=== PATIENT | male | born 1935 | race Caucasian/White ===

== ENCOUNTER 2016-10-18 08:34 | Inpatient (IN) | payer MEDICARE, MEDICAID ==
[~2016-10-18] VITALS: Ht 167.6 cm; Wt 82.5 kg
[2016-10-18] MEDS ORDERED: SOD CHLORIDE 0.9% 1,000 ML IV ONE ×2 (09:00→14:30)
[2016-10-18 09:03] LABS: ADD SCAN DIFF NO
[2016-10-18 09:06] LABS: HEMATOCRIT 42.4 % (42.0-52.0); MEAN CORPUSCULAR HEMOGLOBIN 29.9 pg (29.0-33.0); MEAN CORPUSCULAR HGB CONC 30.7 g/dl (32.0-37.0); MEAN CORPUSCULAR VOLUME 97.5 fl (82.0-101.0); MEAN PLATELET VOLUME 9.7 fl (7.4-10.4); PLATELET COUNT 127 10^3/UL (140-415); RED BLOOD COUNT 4.35 10^6/ul (4.70-6.10); RED CELL DISTRIBUTION WIDTH 13.3 % (11.5-14.5); WHITE BLOOD COUNT 5.8 10^3/ul (4.8-10.8)
[2016-10-18 09:25] LABS: INR 1.77; PROTIME 20.8 Sec (12.2-14.2); PT RATIO 1.6
--- NOTE | 2016-10-18 09:33 | RADRPT ---
PROCEDURE: XR Chest. CLINICAL INDICATION: Possible Sepsis TECHNIQUE: Single frontal view of the chest was obtained COMPARISON: None FINDINGS: Defibrillator pad and wires project over the lower thorax upper abdomen. The endotracheal tube terminates approximately 3 cm above the moo. There is a faintly visualized nasogastric tube with tip projecting over the proximal stomach, partially obscured by overlying defi brillator pad. The side port of the nasogastric tube is not well seen. The cardiac silhouette is borderline enlarged. There are low lung volumes. There is mild pulmonary vascular congestion. Mild diffuse interstitial prominence may represent a co mponent of interstitial edema. There are opacities in the right mid lung may represent atelectasis, scarring and / or trace fluid i n the fissure. No definite pneumothorax or pleural effusion is identified. There are degenerative changes of the visualized spine. IMPRESSION: 1. Borderline cardiomegaly with mild pulmonary vascular congestion and possible mild interstitial e zaheer. 2. Linear opacities in the right mid lung may represent atelectasis, scarring, and / or trace fluid in the fissure. 3. Endotracheal tube in adequate position. 4. Nasogastric tube terminating in the proximal stomach with distal portion partially obscured by o verlying external pad. RPTAT: PP Physician Nick Date Time Electronically viewed and signed by Physician Nick on 10/18/2016 09:33 /
[2016-10-18 09:35] LABS: PARTIAL THROMBOPLASTIN TIME 85.3 Sec (25.0-35.0)
[2016-10-18 09:39] LABS: ALBUMIN 3.4 g/dl (3.3-4.9); ALBUMIN/GLOBULIN RATIO 0.87; BILIRUBIN,INDIRECT 0.3 mg/dl (0-1.1); BILIRUBIN,TOTAL 0.3 mg/dl (0.2-1.3); CALCIUM 8.7 mg/dl (8.4-10.2); CREATININE 2.22 mg/dl (0.61-1.24); TOTAL PROTEIN 7.3 g/dl (6.1-8.1)
--- NOTE | 2016-10-18 09:42 | ERA ---
ER Documentation Chief Complaint Date/Time DATE: 10/18/16 TIME: 09:34 Chief Complaint BIB RA ROSC. S/P CARDIAC ARREST HPI 61-year-old male was brought in by paramedics status post cardiac arrest. Supposedly he was on the toilet when he arrested. There were no signs of trauma. Initial rhythm was PEA. Paramedics intubated the patient perform CPR and administered epinephrine twice before the patient had return of spontaneous circulation. He has not been responsive since. Patient had been in this hospital according to paperwork is on Plavix as well as Coreg. There is have a history of CVA and this is likely reason for the Plavix. ROS Unobtainable Medications Home Meds Reported Medications Furosemide* (Furosemide*) 20 Mg Tablet, 20 MG PO DAILY, #60 TAB 10/18/16 Ferrous Sulfate* (Ferrous Sulfate*) 325 Mg Tabec, 325 MG PO TID, TAB 10/18/16 Donepezil* (Donepezil*) 10 Mg Tablet, 10 MG PO DAILY, #30 TAB 10/18/16 Carvedilol* (Carvedilol*) 12.5 Mg Tablet, 12.5 MG PO BID, #60 TAB 10/18/16 Atorvastatin* (Atorvastatin*) 80 Mg Tablet, 80 MG PO QHS, #30 TAB 10/18/16 Aspirin (Low Dose Aspirin) 81 Mg Tablet.dr, 81 MG PO DAILY, #30 TAB 10/18/16 Allergies Allergies: Coded Allergies: No Known Allergy (Unverified , 10/18/16) Physical Exam Vitals Vital Signs Date Time Temp Pulse Resp B/P Pulse Ox O2 Delivery O2 Flow Rate FiO2 10/18/16 12:54 76 25 100 100 10/18/16 12:40 62 140/71 100 Mechanical Ventilator 10/18/16 11:40 58 14 134/74 100 Mechanical Ventilator 10/18/16 10:38 51 14 113/84 100 Room Air 10/18/16 08:59 19 100 100 10/18/16 08:34 95.3 66 14 136/88 100 Physical Exam Const: [] Unresponsive, receiving bag mask ventilation Head: Atraumatic Eyes: Normal Conjunctiva, pupils fixed ENT: Normal External Ears, Nose and Mouth. Neck: Full range of motion..~ No meningismus. Resp: Equal bilateral breath sounds with bag mask ventilation Cardio: Regular tachycardia, no murmurs Abd: Soft, non distended. Normal bowel sounds Skin: No petechiae or rashes, cool to touch Back: No midline or flank tenderness Ext: No cyanosis, or edema Neur: Completely unresponsive, no response to pain Result Diagram: 10/18/16 0845 10/18/16 0845 Results 24 hrs Laboratory Tests Test 10/18/16 08:45 10/18/16 09:30 10/18/16 11:25 White Blood Count 5.810^3/ul Red Blood Count 4.3510^6/ul Hemoglobin 13.0g/dl Hematocrit 42.4% Mean Corpuscular Volume 97.5fl Mean Corpuscular Hemoglobin 29.9pg Mean Corpuscular Hemoglobin Concent 30.7g/dl Red Cell Distribution Width 13.3% Platelet Count 68830^3/UL Mean Platelet Volume 9.7fl Neutrophils % 36.0% Band Neutrophils % 4.0% Lymphocytes % 55.0% Monocytes % 3.0% Eosinophils % 2.0% Neutrophils # 2.110^3/ul Lymphocytes # 3.210^3/ul Monocytes # 0.210^3/ul Eosinophils # 0.110^3/ul Prothrombin Time 20.8Sec Prothrombin Time Ratio 1.6 INR International Normalized Ratio 1.77 Activated Partial Thromboplast Time 85.3Sec Sodium Level 143mmol/L Potassium Level 5.3mmol/L Chloride Level 104mmol/L Carbon Dioxide Level 20mmol/L Anion Gap 24 Blood Urea Nitrogen 31mg/dl Creatinine 2.22mg/dl Glucose Level 240mg/dl Lactic Acid Level 8.5mmol/L 6.6mmol/L Calcium Level 8.7mg/dl Total Bilirubin 0.3mg/dl Direct Bilirubin 0.00mg/dl Indirect Bilirubin 0.3mg/dl Aspartate Amino Transf (AST/SGOT) 27IU/L Alanine Aminotransferase (ALT/SGPT) 23IU/L Alkaline Phosphatase 167IU/L Troponin I 0.034ng/ml Total Protein 7.3g/dl Albumin 3.4g/dl Globulin 3.90g/dl Albumin/Globulin Ratio 0.87 Urine Color YELLOW Urine Clarity SLIGHTLY CLOUDY Urine pH 5.0 Urine Specific [place] 1.014 Urine Ketones NEGATIVEmg/dL Urine Nitrite NEGATIVEmg/dL Urine Bilirubin NEGATIVEmg/dL Urine Urobilinogen NEGATIVEmg/dL Urine Leukocyte Esterase NEGATIVELeu/ul Urine Microscopic RBC 25/HPF Urine Microscopic WBC 2/HPF Urine Hemoglobin 3+mg/dL Urine Glucose NEGATIVEmg/dL Urine Total Protein 1+mg/dl Current Medications Medications (Trade) Dose Ordered Sig/Bernie Route PRN Reason Start Time Stop Time Status Last Admin Dose Admin Sodium Chloride (NS) 1,000 ml @ 1,000 mls/hr Q1H ONCE IV 10/18/16 09:00 10/18/16 09:59 DC 10/18/16 09:00 IV Flush (NS 3 ml) 3 ml PER PROTOCOL IV 10/18/16 12:00 Ondansetron HCl (Zofran Inj) 4 mg Q6H PRN IV NAUSEA AND/OR VOMITING 10/18/16 12:00 Acetaminophen (Tylenol Tab) 650 mg Q6H PRN PO PAIN LEVEL 1-3 OR FEVER 10/18/16 12:00 Acetaminophen/ Hydrocodone Bitart ([place] (5/325)) 1 tab Q6H PRN PO MODERATE PAIN LEVEL 4-6 10/18/16 12:00 Morphine Sulfate (morphine) 2 mg Q4H PRN IV SEVERE PAIN LEVEL 7-10 10/18/16 12:00 Docusate Sodium (Colace) 100 mg Q12H PRN PO CONSTIPATION 10/18/16 12:00 Magnesium Hydroxide (Milk Of Mag) 30 ml DAILY PRN PO CONSTIPATION 10/18/16 12:00 Sodium Biphosphate/ Sodium Phosphate (Fleet Enema) 133 ml DAILY PRN [place] CONSTIPATION 10/18/16 12:00 Famotidine (Pepcid Iv) 20 mg Q24H IV 10/18/16 14:00 Lorazepam (Ativan) 0.5 mg Q6H PRN IV ANXIETY 10/18/16 12:00 10/18/16 13:36 Albuterol/ Ipratropium (Duoneb) 3 ml Q4H RESP THERAPY PRN HHN SHORTNESS OF BREATH 10/18/16 12:00 Hydralazine HCl (Apresoline) 10 mg Q6H PRN IV ELEVATED BLOOD PRESSURE 10/18/16 12:00 Nitroglycerin 1 tab 1 tab Q5M PRN SL ANGINA 10/18/16 12:00 Aztreonam 2 gm/ Sodium Chloride 100 ml @ 100 mls/hr Q8 IVPB 10/18/16 14:00 UNV Midazolam HCl 50 ml @ 3 mls/hr ONCE STAT IV 10/18/16 12:01 10/19/16 04:40 Fentanyl (Sublimaze) 100 ml @ 2.5 mls/hr TITRATE ONCE IV 10/18/16 12:30 10/20/16 04:29 Procedures/MDM Post cardiac arrest patient had any signs of acute infection. Elevated white count. Acute renal failure with hyperkalemia. Lactic acidosis post arrest and brief CPR. Patient has had stable blood pressure throughout. I spoke with hide grader, Dr Steven, after patient arrival. He did not think this patient was appropriate for taking straight to the [facility]. He is showing some signs of improving mental status. When he was suctioned by respiratory he wakes up raises his arms and opens his eyes briefly. Therapeutic hypothermia not initiated because of this as well as coagulopathy with patient on Plavix with a very high PTT. Patient given a rectal aspirin. Is also given Kayexalate for the NG tube. Spoke with Dr. El Mayberry who admitting the patient to the ICU. EKG interpretation: Normal sinus rhythm rate of 84, 2 PVCs, QT of 554, no ST or T-wave changes concerning for acute ischemia. Chest x-ray interpretation: Right lower lung atelectasis with no other acute process, I see no definite infiltrate, no widened mediastinum, pneumothorax, no fractures. CT head interpretation: I see no acute process. I see no hemorrhage, no mass- effect or midline shift no skull fractures CT abdomen pelvis interpretation: No acute process. No abnormal fat stranding, no free air, no obstruction, no acute fractures Critical care time 46 minutes: This includes management of postarrest patient, careful fluid administration, post return of spontaneous circulation care, consideration of invasive procedures, treatment of unstable vital signs, multiple frequent visits patient's bedside to reassess status and signs of decompensation loss of pulses. Also includes chart review and ventilator management. This does not include any billable procedures Departure Diagnosis: Primary Impression: Cardiac arrest Additional Impressions: Renal failure Hyperkalemia Thrombocytopenia Lactic acidosis Condition: Critical SHANNON MCDONOUGH DO Oct 18, 2016 09:41
[2016-10-18 09:49] LABS: POTASSIUM 5.3 mmol/L (3.5-5.1)
[2016-10-18 09:51] LABS: TROPONIN-I 0.034 ng/ml (0.00-0.12)
[2016-10-18 10:10] LABS: ADD UMIC YES; UR ASCORBIC ACID NEGATIVE (NEGATIVE); UR BILIRUBIN (Dip) NEGATIVE (NEGATIVE); UR BLOOD (Dip) 3+ mg/dL (NEGATIVE); UR CLARITY SLIGHTLY CLOUDY (CLEAR); UR COLOR YELLOW (YELLOW); UR GLUCOSE (Dip) NEGATIVE (NEGATIVE); UR KETONES (Dip) NEGATIVE (NEGATIVE); UR LEUKOCYTE ESTERASE (Dip) NEGATIVE Leu/ul (NEGATIVE); UR NITRITE (Dip) NEGATIVE (NEGATIVE); UR RBC 25 /HPF (0-5); UR SPECIFIC GRAVITY (Dip) 1.014 (1.003-1.030); UR TOTAL PROTEIN (Dip) 1+ mg/dl (NEGATIVE); UR UROBILINOGEN (Dip) NEGATIVE (NEGATIVE)
--- NOTE | 2016-10-18 10:25 | RADRPT ---
PROCEDURE: CT abdomen and pelvis without contrast. CLINICAL INDICATION: Cardiac arrest. Abdominal aortic aneurysm. TECHNIQUE: CT scan of the abdomen and pelvis without contrast was performed and is reconstructed a t 2.5 mm contiguous axial intervals from the dome of the diaphragm to the inferior pubic rami.. The patient was scanned without intravenous contrast. Sagittal and coronal reformatted images were obt ained from the axial source images. The calculated radiation dose measures 1134 mGy centimeters. The CTDI measures 17 mGy. COMPARISON: None. FINDINGS: There are small bilateral pleural effusions and a small pericardial effusion. Noted is cardiomegaly with coronary artery calcifications. No alveolar infiltrate or mass is seen. There is partial ate lectasis of the right middle lobe and the inferior segment of the lingula. Increased interstitial m arkings are seen in the dependent portion of both lower lobes. The liver, spleen and pancreas are unremarkable. There are gallstones. No adrenal mass is present. 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 There are multiple less than 3 mm nonobstructing l eft renal calculi. Ureters are of normal course and caliber with no stone. Tovar catheter is seen in a decompressed urinary bladder. There is questionable thickening of the wall of the urinary blad judy which may represent evidence of cystitis. Prostate is enlarged. The capsule appears to be inta ct. There is no adenopathy. Noted is fusiform aneurysm of the abdominal aorta measuring 6 cm in maximum transverse diameter. Th ere are mural calcifications. The aneurysm arises approximately 2 cm below the renal arteries and i s not involve the common iliac arteries. There is calcified plaque in the iliac vessels. There is no evidence of retroperitoneal hemorrhage to suggest leak. No bowel mass or obstruction is present. No phlegmon, ascites or pneumoperitoneum is seen. The aristides endix is normal. The osseous structures are intact. IMPRESSION: 6 cm infrarenal super iliac abdominal aortic aneurysm. No evidence of rupture. 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 Enlarged prostate - correlation with PSA is suggested. Question bladder wall thickening. This may indicate cystitis. Small pleural effusions and small pericardial effusion. Cardiomegaly with coronary artery calcifica tions. Bibasilar atelectasis. Cholelithiasis. .Gaurav Whitt MD, MD Date Time Electronically viewed and signed by .Gaurav Whitt MD, MD on 10/18/2016 10:24 .A/
[2016-10-18 10:59] LABS: EOSINOPHILS # 0.1 10^3/ul (0.0-0.5); LYMPHOCYTES # 3.2 10^3/ul (0.8-2.9); MONOCYTE # 0.2 10^3/ul (0.3-0.9); NEUTROPHIL # 2.1 10^3/ul (1.6-7.5)
--- NOTE | 2016-10-18 11:04 | CONS ---
Date/Time of Note Date/Time of Note DATE: 10/18/16 TIME: 10:52 Assessment/Plan Assessment/Plan Chief Complaint/Hosp Course PEA/Asystole cardiac arrest: Etiology unclear. Commonly when PEA occurs on the toilet (vagal with release) concern is for severe , pulm HTN, or PE. No significant ST changes by EKG and initial trop negative (obviously needs to be trended). CXR shows a somewhat globular heart so effusion needs to be ruled out but currently hemodynamically stable. Acute respiratory failure: intubated due to arrest Acute renal failure: from above Acute ?diastolic/systolic heart failure: mild pulm edema by CXR AAA: [address] but no e/o rupture though noncontrast study -stat echo -trend trops -consider eval for PE especially if echo is suggestive of RV dysfunction -eventually needs vascular surgery eval for AAA Problems: Consultation Date/Type/Reason Admit Date/Time Date of Consultation: Oct 18, 2016 Type of Consultation: Cardiology Reason for Consultation Cardiac arrest Referring Provider: SHANNON MCDONOUGH DO Hx of Present Illness 81 yo M with no known medical history (no family or prior medical records) who presented secondary to cardiac arrest at home. The pt was apparently on the toilet and was found down (unclear length). When paramedics arrived he was in asystole and he was successfully resuscitated. No VF or shocks. He has remained intubated, unresponsive and hemodynamically stable. Subjective hx not possible: pt non-verbal Past Medical History unknown Social History Smoking Status: Never smoker Exam/Review of Systems Vital Signs Vitals Vital Signs Date Time Temp Pulse Resp B/P Pulse Ox O2 Delivery O2 Flow Rate FiO2 10/18/16 10:38 51 14 113/84 100 Room Air 10/18/16 08:59 100 10/18/16 08:34 95.3 Exam Constitutional: No alert Head: atraumatic, normocephalic Neck: No jvd (difficult to examine ) Respiratory: diminished breath sounds, No clear to auscultation Cardiovascular: other (slightly cool extremities ), systolic murmur (2/6 FIDE), No edema, No regular rate and rhythm (bradycardic 50s) Gastrointestinal: soft, No distended Neurological: No nl mental status, No nl speech Skin: rash or lesions Results EKG: sinus, nonspecific IVCB, poor RW progression, no significant ST elevation or depression Result Diagram: 10/18/16 0845 10/18/16 0845 Results 24 hrs Laboratory Tests Test 10/18/16 08:45 10/18/16 09:30 White Blood Count 5.8 Red Blood Count 4.35 L Hemoglobin 13.0 L Hematocrit 42.4 Mean Corpuscular Volume 97.5 Mean Corpuscular Hemoglobin 29.9 Mean Corpuscular Hemoglobin Concent 30.7 L Red Cell Distribution Width 13.3 Platelet Count 127 L Mean Platelet Volume 9.7 Neutrophils % Lymphocytes % Monocytes % Neutrophils # Lymphocytes # Monocytes # Prothrombin Time 20.8 H Prothrombin Time Ratio 1.6 INR International Normalized Ratio 1.77 Activated Partial Thromboplast Time 85.3 *H Sodium Level 143 Potassium Level 5.3 H Chloride Level 104 Carbon Dioxide Level 20 L Anion Gap 24 H Blood Urea Nitrogen 31 H Creatinine 2.22 H Glucose Level 240 H Lactic Acid Level 8.5 *H Calcium Level 8.7 Total Bilirubin 0.3 Direct Bilirubin 0.00 Indirect Bilirubin 0.3 Aspartate Amino Transf (AST/SGOT) 27 Alanine Aminotransferase (ALT/SGPT) 23 Alkaline Phosphatase 167 H Troponin I 0.034 Total Protein 7.3 Albumin 3.4 Globulin 3.90 H Albumin/Globulin Ratio 0.87 Urine Color YELLOW Urine Clarity SLIGHTLY CLOUDY A Urine pH 5.0 Urine Specific [place] 1.014 Urine Ketones NEGATIVE Urine Nitrite NEGATIVE Urine Bilirubin NEGATIVE Urine Urobilinogen NEGATIVE Urine Leukocyte Esterase NEGATIVE Urine Microscopic RBC 25 H Urine Microscopic WBC 2 Urine Hemoglobin 3+ H Urine Glucose NEGATIVE Urine Total Protein 1+ H MARIPOSA SANDERSON Oct 18, 2016 11:04
--- NOTE | 2016-10-18 11:55 | RADRPT ---
Echocardiogram Report Patient Name: GIGI US Gender: Male Date: 1935 Study Date: 18-Oct-2016 Rolfer: Israel Caldera RDCS Location: 3 Ref. Physician: MARIPOSA SANDERSON Quality: Good Procedures: Transthoracic echocardiogram with complete 2D, M-Mode, and doppler examination. Indications: Cardiac Arrest. 2D/M Mode Doppler Measurement Value Normal Ranges Measurement Value Normal Ranges LVIDd 2D 5.6 3.5 - 5.6 cm AV Peak Pipo 1.1 m/sec LVIDs 2D 3.8 2.1 - 4.1 cm AV Peak PG 4.9 mmHg LVPWd 2D 1.1 0.6 - 1.1 cm AI Peak PG 47.2 mmHg IVSd 2D 1.2 0.6 - 1.1 cm AI Peak Pipo 3.4 m/sec AoR Diam 2D 2.9 2.0 - 3.7 cm AI PHT 683.0 msec EDV 2D 156.8 cm3 LVOT Peak Pipo 0.6 m/sec ESV 2D 53.1 cm3 LVOT Peak PG 1.4 mmHg LA Dimen 2D 4.9 2.3 - 4.0 cm TR Peak Pipo 3.1 m/sec TR Peak PG 38.2 mmHg RVSP 53.0 mmHg Findings Left Ventricle: Normal left ventricular cavity size. Normal left ventricular wall thickness. Severe global left ventricular systolic dysfunction. Ejection fraction is visually estimated at 25 %. Resting Segmental Wall Motion Analysis: Akinesis of the apex and anterolateral arteaga. The anterior wall is not well seen but appears hypokinetic. The mid to distal inferolateral and inferior arteaga are hypokinetic as well. Right Ventricle: Mild right ventricular hypokinesis. Left Atrium: There is moderate enlargement of left atrium. Right Atrium: The right atrium is normal in size. Mitral Valve: Mitral valve leaflets appear mildly thickened. Mild mitral annular calcification. Mild to moderate mitral valve regurgitation. Aortic Valve: Aortic cusps appear mildly calcified. Mild aortic valve regurgitation. Tricuspid Valve: Normal appearance of the tricuspid valve. Estimated peak PA systolic pressure 53 mmHg. There is mild tricuspid regurgitation. Pulmonic Valve: Normal pulmonic valve appearance. Pericardium: Small pericardial effusion. Aorta: Normal aortic root. IVC: Dilated IVC without respiratory collapse, however, patient on ventilator. Conclusions 1.Normal left ventricular cavity size. Normal left ventricular wall thickness. Severe global left ventricular systolic dysfunction. Ejection fraction is visually estimated at 25 %. 2.Akinesis of the apex and anterolateral arteaga. The anterior wall is not well seen but appears hypokinetic. The mid to distal inferolateral and inferior arteaga are hypokinetic as well. 3.Mild to moderate mitral valve regurgitation. 4.Mild aortic valve regurgitation. 5.Small pericardial effusion. 6.Estimated peak PA systolic pressure 53 mmHg based on RA pressure of 15 mmHg. Patient is on a ventilator. Electronically Signed By: Mariposa Sanderson 18-Oct-2016 11:54:32 -0700 Patient Name: GIGI US Study Date: 18-Oct-2016 [id number]
[2016-10-18] MEDS ORDERED: DOCUSATE SODIUM 100 MG CAP PO PRN (12:00)
[2016-10-18] MEDS ORDERED: morphine 2 MG INJ IV PRN (12:00)
[2016-10-18] MEDS ORDERED: ONDANSETRON 4 MG INJ IV PRN (12:00)
[2016-10-18] MEDS ORDERED: NA PHOSPHATE/BIPHOS 133 ML ENEMA PR PRN (12:00)
[2016-10-18] MEDS ORDERED: HYDROCODONE/APAP (5/325) TAB PO PRN (12:00)
[2016-10-18] MEDS ORDERED: ACETAMINOPHEN 325 MG TAB PO PRN (12:00)
[2016-10-18] MEDS ORDERED: hydrALAzine 20 MG INJ IV PRN (12:00)
[2016-10-18] MEDS ORDERED: NITROGLYCERIN (SL) 0.4 MG TAB SL PRN (12:00)
[2016-10-18] MEDS ORDERED: ALBUTEROL/IPRATROPIUM (NEB) 3 ML AMP HHN PRN (12:00)
[2016-10-18] MEDS ORDERED: NACL 0.9% 3 ML SYG IV SCH (12:00)
[2016-10-18] MEDS ORDERED: LORAZEPAM 2 MG INJ IV PRN (12:00)
[2016-10-18] MEDS ORDERED: MAGNESIUM HYDROXIDE 30ML CUP PO PRN (12:00)
[2016-10-18] MEDS ORDERED: MIDAZOLAM (DRIP) 50 mg/50 mL 50 ML IV STA (12:01)
[2016-10-18] MEDS ORDERED: FENTAnyl (DRIP) 1000 mcg/100mL 100 ML IV ONE (12:30)
[2016-10-18] MEDS ORDERED: ATOR80TA75 PO (12:33)
[2016-10-18] MEDS ORDERED: ASPI-664 PO (12:33)
[2016-10-18] MEDS ORDERED: CARV12.579 PO (12:33)
[2016-10-18] MEDS ORDERED: FURO20TA3 PO (12:34)
[2016-10-18] MEDS ORDERED: FER325 PO (12:34)
[2016-10-18] MEDS ORDERED: DONE10TA7 PO (12:34)
--- NOTE | 2016-10-18 13:32 | RADRPT ---
PROCEDURE: CT Brain without contrast. CLINICAL INDICATION: Cardiac arrest. evaluate for stroke. TECHNIQUE: A CT of the brain was performed on a multidetector CT scanner utilizing axial sections from the skull base through the vertex without contrast. Images were reviewed on a high-resolution [employer] workstation. Exam CTDI = 44.52 mGy and the DLP = 720.23 mGy-cm. One or more of the following dose reduction techniques were used: Automated exposure control Adjustment of the mA and/or kV according to patient size. Use of iterative reconstruction technique. COMPARISON: None FINDINGS: Mild to moderate diffuse cerebral and cerebellar atrophy is present. There is proportionate dilatat ion of the ventricular system and sulci in a symmetric fashion. There is prominence of the extraaxia l spaces secondary to atrophy. There is no evidence of intracranial hemorrhage, mass effect or midli ne shift. There is mild sulcal effacement and blurring of the rico-white matter differentiation invo lving the left parietal, and posterior temporal lobes suggesting acute infarct. There is encephaloma lacia with dystrophic calcification in the left cerebellar hemisphere. There is a small area of chr onic infarct involving the right frontal operculum, sub insular region/external capsule with ex vacu o dilatation of the right lateral ventricle. No abnormal intra-axial or extra-axial fluid collection s are seen. The density of the brain is normal and the rico/white matter differentiation is well pr eserved. Mild patchy diffuse deep white matter microangiopathic ischemic change is seen. The osseous structures are unremarkable. Paranasal sinuses are clear. Vascular calcifications are ident ified. Several attempts were made to communicate the results with ED team at 01:31 p.m. on 10/18/2016. IMPRESSION: 1. Subtle blurring of the great white matter differentiation and mild sulcal effacement involving t he left parietal and posterior temporal lobes suggesting acute infarct. No evidence of hemorrhagic conversion or significant associated vasogenic edema/mass effect. Brain MRI or short-term follow-up CT head is recommended for further evaluation. 2. Focal encephalomalacia with dystrophic calcification in the left cerebellar hemisphere. 3. Chronic infarct in the right frontal operculum, sub insular region and external capsule. 4. Mild to moderate generalized volume loss. 5. Mild chronic microvascular ischemic changes. 6. Intracranial atherosclerosis. RPTAT: BB .Toni Grove MD, MD Date Time Electronically viewed and signed by .Toni Grove MD, MD on 10/18/2016 13:32 .O/
[2016-10-18] MEDS ORDERED: ASPIRIN 300 MG SUPP PR ONE (14:00)
[2016-10-18] MEDS ORDERED: NA POLYST SULFON 15 GM/60 ML BTL NGT ONE (14:00)
[2016-10-18] MEDS: AZTREONAM 1 GM/NS (PMX) 50 ML IVPB SCH ×2 (14:47→22:11)
[2016-10-18] MEDS: FAMOTIDINE 20 MG INJ IV SCH ×2 (15:49→17:41)
--- NOTE | 2016-10-18 16:11 | HP ---
Date/Time of Note Date/Time of Note DATE: 10/18/16 TIME: 16:03 Assessment/Plan VTE Prophylaxis VTE Prophylaxis Intervention: SCD's HPI/ROS Admit Date/Time Admit Date/Time ROS PMH/Family/Social Past Medical History Medical History: other Social History Smoking Status: Never smoker Exam/Review of Systems Vital Signs Vitals Vital Signs Date Time Temp Pulse Resp B/P Pulse Ox O2 Delivery O2 Flow Rate FiO2 10/18/16 15:04 96.2 10/18/16 14:59 54 22 100 100 10/18/16 14:14 153/62 Mechanical Ventilator Labs Result Diagram: 10/18/16 0845 10/18/16 0845 Medications Medications Current Medications Ondansetron HCl (Zofran Inj) 4 mg Q6H PRN IV NAUSEA AND/OR VOMITING; Start at 12:00 Acetaminophen (Tylenol Tab) 650 mg Q6H PRN PO PAIN LEVEL 1-3 OR FEVER; Start at 12:00 Acetaminophen/ Hydrocodone Bitart ([place] (5/325)) 1 tab Q6H PRN PO MODERATE PAIN LEVEL 4-6; Start 10/18/16 at 12:00 Morphine Sulfate (morphine) 2 mg Q4H PRN IV SEVERE PAIN LEVEL 7-10; Start 10/18 at 12:00 Docusate Sodium (Colace) 100 mg Q12H PRN PO CONSTIPATION; Start 10/18/16 at 12: 00 Magnesium Hydroxide (Milk Of Mag) 30 ml DAILY PRN PO CONSTIPATION; Start at 12:00 Sodium Biphosphate/ Sodium Phosphate (Fleet Enema) 133 ml DAILY PRN [place] CONSTIPATION; Start 10/18/16 at 12:00 Famotidine (Pepcid Iv) 20 mg Q24H IV ; Start 10/18/16 at 14:00 Lorazepam (Ativan) 0.5 mg Q6H PRN IV ANXIETY Last administered on 10/18/16t 13: 36; Admin Dose 0.5 MG; Start 10/18/16 at 12:00 Hydralazine HCl (Apresoline) 10 mg Q6H PRN IV ELEVATED BLOOD PRESSURE; Start at 12:00 Nitroglycerin 1 tab 1 tab Q5M PRN SL ANGINA; Start 10/18/16 at 12:00 Aztreonam 50 ml @ 100 mls/hr Q8 IVPB Last administered on 10/18/16 14:47; Admin Dose 100 MLS/HR; Start 10/18/16 at 14:30 Fentanyl (Sublimaze) 100 ml @ 2.5 mls/hr TITRATE ONCE IV ; Start 10/18/16 at 12:30; Stop 10/20/16 at 04:29 JAZ BRISCOE Oct 18, 2016 16:11 36; Admin Dose 0.5 MG; Start 10/18/16 at 12:00 Hydralazine HCl (Apresoline) 10 mg Q6H PRN IV ELEVATED BLOOD PRESSURE; Start at 12:00 Nitroglycerin 1 tab 1 tab Q5M PRN SL ANGINA; Start 10/18/16 at 12:00 Aztreonam 50 ml @ 100 mls/hr Q8 IVPB Last administered on 10/18/16 14:47; Admin Dose 100 MLS/HR; Start 10/18/16 at 14:30 Fentanyl (Sublimaze) 100 ml @ 2.5 mls/hr TITRATE ONCE IV ; Start 10/18/16 at 12:30; Stop 10/20/16 at 04:29 JAZ BRISCOE Oct 18, 2016 16:11
[2016-10-18] MEDS ORDERED: NA BICARBONATE 8.4% 50 ML SYG IV ONE (16:30)
--- NOTE | 2016-10-18 18:37 | CONS ---
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 Question bladder wall thickening. ? cystitis via CT 6) AMS ? CVA vs mass 7) Hyperkalemia, mild 8) Lactic acidosis No acute indication for HD at this time ICU level of care Strict Is and Os Gimenez in place Monitor Electrolytes, Volume and Acid Base status, Renal function closely Renal US and Urine studies ordered F/u Urine Cultures, ? Cystitis S/p Broad spectrum IV abx in ED Thank you for the opportunity to paticipate in the care of Mr Perry Dr Lyons is rounding this weekend and will sign out case. Consultation Date/Type/Reason Admit Date/Time Date of Consultation: Oct 18, 2016 Type of Consultation: Renal Reason for Consultation GABRIELA Referring Provider: JAZ BRISCOE Hx of Present Illness Unable to obtain hx from patient, Intubated and sedated. 81-year-old male with unknown past medical history who was brought in by EMS S/ p cardiac arrest. It is unclear how long patient was down at home before CPR initiated. Paramedics had intubated the patient perform CPR and administered epinephrine twice and with ROSC. A Head CT also shows subtle blurring of the great white matter differentiation and mild sulcal effacement involving the left parietal and posterior temporal lobes suggesting acute infarct. Nephrology consulted for GABRIELA, unknown baseline. Pt also has gimenez catheter and has not made any UO depsite 2 Liters of IVFS. No hypotension reported. Bladder scan at bedside no urine. unable to obtain due to condition Subjective hx not possible: pt critical status Past Medical History Medical History: other (unknown) Past Surgical History Past Surgical Hx: other Family History Significant Family History: other (unknown) Social History Smoking Status: Never smoker Other Social History unknown Exam/Review of Systems Vital Signs Vitals Vital Signs Date Time Temp Pulse Resp B/P Pulse Ox O2 Delivery O2 Flow Rate FiO2 10/18/16 18:08 76 18 100 100 10/18/16 17:11 146/80 Mechanical Ventilator 10.0 10/18/16 16:04 95.8 Exam ENMT: intubated, No mucosa pink and moist Neck: No jvd Respiratory: other (Ventilator, Coarse breath sounds), No diminished breath sounds Cardiovascular: irregular rhythm, No edema Gastrointestinal: soft, No distended, No rebound or guarding, No tender Musculoskeletal: nl extremities to inspection Extremities: No pitting pedal edema Neurological: unresponsive Skin: No diaphoresis, No rash or lesions Results Result Diagram: 10/18/16 0845 10/18/16 0845 Results 24 hrs Laboratory Tests Test 10/18/16 08:45 10/18/16 09:30 10/18/16 11:25 10/18/16 13:40 White Blood Count 5.8 Red Blood Count 4.35 L Hemoglobin 13.0 L Hematocrit 42.4 Mean Corpuscular Volume 97.5 Mean Corpuscular Hemoglobin 29.9 Mean Corpuscular Hemoglobin Concent 30.7 L Red Cell Distribution Width 13.3 Platelet Count 127 L Mean Platelet Volume 9.7 Neutrophils % 36.0 L Band Neutrophils % 4.0 Lymphocytes % 55.0 H Monocytes % 3.0 Eosinophils % 2.0 Neutrophils # 2.1 Lymphocytes # 3.2 H Monocytes # 0.2 L Eosinophils # 0.1 Prothrombin Time 20.8 H Prothrombin Time Ratio 1.6 INR International Normalized Ratio 1.77 Activated Partial Thromboplast Time 85.3 *H Sodium Level 143 Potassium Level 5.3 H Chloride Level 104 Carbon Dioxide Level 20 L Anion Gap 24 H Blood Urea Nitrogen 31 H Creatinine 2.22 H Glucose Level 240 H Lactic Acid Level 8.5 *H 6.6 *H 7.5 *H Calcium Level 8.7 Total Bilirubin 0.3 Direct Bilirubin 0.00 Indirect Bilirubin 0.3 Aspartate Amino Transf (AST/SGOT) 27 Alanine Aminotransferase (ALT/SGPT) 23 Alkaline Phosphatase 167 H Troponin I 0.034 1.870 *H Total Protein 7.3 Albumin 3.4 Globulin 3.90 H Albumin/Globulin Ratio 0.87 Urine Color YELLOW Urine Clarity SLIGHTLY CLOUDY A Urine pH 5.0 Urine Specific [place] 1.014 Urine Ketones NEGATIVE Urine Nitrite NEGATIVE Urine Bilirubin NEGATIVE Urine Urobilinogen NEGATIVE Urine Leukocyte Esterase NEGATIVE Urine Microscopic RBC 25 H Urine Microscopic WBC 2 Urine Hemoglobin 3+ H Urine Glucose NEGATIVE Urine Total Protein 1+ H Free Thyroxine 1.78 Test 10/18/16 16:00 Lactic Acid Level 5.9 *H Medications Medications Current Medications Ondansetron HCl (Zofran Inj) 4 mg Q6H PRN IV NAUSEA AND/OR VOMITING; Start at 12:00 Acetaminophen (Tylenol Tab) 650 mg Q6H PRN PO PAIN LEVEL 1-3 OR FEVER; Start at 12:00 Acetaminophen/ Hydrocodone Bitart ([place] (5/325)) 1 tab Q6H PRN PO MODERATE PAIN LEVEL 4-6; Start 10/18/16 at 12:00 Morphine Sulfate (morphine) 2 mg Q4H PRN IV SEVERE PAIN LEVEL 7-10; Start 10/18 at 12:00 Docusate Sodium (Colace) 100 mg Q12H PRN PO CONSTIPATION; Start 10/18/16 at 12: 00 Magnesium Hydroxide (Milk Of Mag) 30 ml DAILY PRN PO CONSTIPATION; Start at 12:00 Sodium Biphosphate/ Sodium Phosphate (Fleet Enema) 133 ml DAILY PRN [place] CONSTIPATION; Start 10/18/16 at 12:00 Famotidine (Pepcid Iv) 20 mg Q24H IV Last administered on 10/18/16 17:41; Admin Dose 20 MG; Start 10/18/16 at 14:00 Lorazepam (Ativan) 0.5 mg Q6H PRN IV ANXIETY Last administered on 10/18/16 13: 36; Admin Dose 0.5 MG; Start 10/18/16 at 12:00 Hydralazine HCl (Apresoline) 10 mg Q6H PRN IV ELEVATED BLOOD PRESSURE; Start at 12:00 Nitroglycerin 1 tab 1 tab Q5M PRN SL ANGINA; Start 10/18/16 at 12:00 Aztreonam 50 ml @ 100 mls/hr Q8 IVPB Last administered on 10/18/16 14:47; Admin Dose 100 MLS/HR; Start 10/18/16 at 14:30 Fentanyl (Sublimaze) 100 ml @ 2.5 mls/hr TITRATE ONCE IV Last administered on 10/18/16 16:27; Admin Dose 2.5 MLS/HR; Start 10/18/16 at 12:30; Stop at 04:29 Atorvastatin Calcium (Lipitor) 80 mg QHS PO ; Start 10/18/16 at 21:00 Procedures Procedures CXR IMPRESSION: 1. Borderline cardiomegaly with mild pulmonary vascular congestion and possible mild interstitial edema. 2. Linear opacities in the right mid lung may represent atelectasis, scarring, and / or trace fluid in the fissure. 3. Endotracheal tube in adequate position. 4. Nasogastric tube terminating in the proximal stomach with distal portion partially obscured by overlying external pad. CT IMPRESSION: 6 cm infrarenal super iliac abdominal aortic aneurysm. No evidence of rupture. 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 Enlarged prostate - correlation with PSA is suggested. Question bladder wall thickening. This may indicate cystitis. Small pleural effusions and small pericardial effusion. Cardiomegaly with coronary artery calcifications. Bibasilar atelectasis. Cholelithiasis. .Gaurav Whitt MD, MD Date Time Electronically viewed and signed by .Gaurav Whitt MD, MD on 10/18/2016 10: 24 MARTINA MCCULLOUGH MD Oct 18, 2016 18:37
--- NOTE | 2016-10-18 19:00 | CONS ---
Date/Time of Note Date/Time of Note DATE: 10/18/16 TIME: 18:54 Assessment/Plan Assessment/Plan Chief Complaint/Hosp Course Assessment 1. Cardiopulmonary arrest 2. Possible anoxic brain injury 3. Possible aspiration pneumonia 4. Questionable acute infarct given CT findings. 5. Incomplete data 6. Severe lactic acidosis likely secondary to hypoperfusion. Plan 1. Continue mechanical ventilation 2. Continue aggressive volume resuscitation 3. Consider broad-spectrum antibiotics 4. Attempt to contact next of kin. 5. Agree with palliative care evaluation as prolonged cardiopulmonary arrest can result in severe anoxic brain injury with very poor prognosis. Currently patient remains full code. Problems: Consultation Date/Type/Reason Admit Date/Time Date of Consultation: Oct 18, 2016 Reason for Consultation Respiratory failure Hx of Present Illness This history is from the chart there are no family members present patient is intubated on mechanical ventilation. 81-year-old gentleman with unknown past medical history per documentation patient was on the toilet collapsed found unresponsive unclear how long he was down before CPR was initiated and arrival of EMS. Initially found to be in PEA rhythm patient required intubation and mechanical ventilation given epinephrine with return of circulation. ER physician hypothermia was not commenced. Patient found to have initial significant lactic acidosis. Aggressive volume resuscitation initiated initial CTs demonstrated 6 cm AAA but no evidence of rupture. CT of the brain showed subtle blurring of rico-white matter but no bleeding. There was suggestion of possible acute infarct. Currently patient is intubated on mechanical ventilation twitching activity unclear whether this is seizure activity. Unable to perform Past Medical History Unknown Medical History: other (unknown) Past Surgical History Past Surgical Hx: other Social History Smoking Status: Never smoker Exam/Review of Systems Vital Signs Vitals Vital Signs Date Time Temp Pulse Resp B/P Pulse Ox O2 Delivery O2 Flow Rate FiO2 10/18/16 18:08 76 18 100 100 10/18/16 17:11 146/80 Mechanical Ventilator 10.0 10/18/16 16:04 95.8 Exam PHYSICAL EXAMINATION GENERAL: Chronically ill-appearing gentleman intubated on mechanical ventilation with occasional twitching activity which is not focal. VITAL SIGNS: see below. HEENT: Pupils equal, round, and reactive to light. CARDIAC: S1, S2, 1/6 systolic ejection murmur CHEST: Diminished air entry bilaterally. ABDOMEN: Mildly distended. Bowel sounds present no guarding or rebound EXTREMITIES: No cyanosis, clubbing edema +1 NEUROLOGIC: Generalized weakness Results Result Diagram: 10/18/16 0845 10/18/16 0845 Results 24 hrs Laboratory Tests Test 10/18/16 08:45 10/18/16 09:30 10/18/16 11:25 10/18/16 13:40 White Blood Count 5.8 Red Blood Count 4.35 L Hemoglobin 13.0 L Hematocrit 42.4 Mean Corpuscular Volume 97.5 Mean Corpuscular Hemoglobin 29.9 Mean Corpuscular Hemoglobin Concent 30.7 L Red Cell Distribution Width 13.3 Platelet Count 127 L Mean Platelet Volume 9.7 Neutrophils % 36.0 L Band Neutrophils % 4.0 Lymphocytes % 55.0 H Monocytes % 3.0 Eosinophils % 2.0 Neutrophils # 2.1 Lymphocytes # 3.2 H Monocytes # 0.2 L Eosinophils # 0.1 Prothrombin Time 20.8 H Prothrombin Time Ratio 1.6 INR International Normalized Ratio 1.77 Activated Partial Thromboplast Time 85.3 *H Sodium Level 143 Potassium Level 5.3 H Chloride Level 104 Carbon Dioxide Level 20 L Anion Gap 24 H Blood Urea Nitrogen 31 H Creatinine 2.22 H Glucose Level 240 H Lactic Acid Level 8.5 *H 6.6 *H 7.5 *H Calcium Level 8.7 Total Bilirubin 0.3 Direct Bilirubin 0.00 Indirect Bilirubin 0.3 Aspartate Amino Transf (AST/SGOT) 27 Alanine Aminotransferase (ALT/SGPT) 23 Alkaline Phosphatase 167 H Troponin I 0.034 1.870 *H Total Protein 7.3 Albumin 3.4 Globulin 3.90 H Albumin/Globulin Ratio 0.87 Urine Color YELLOW Urine Clarity SLIGHTLY CLOUDY A Urine pH 5.0 Urine Specific [place] 1.014 Urine Ketones NEGATIVE Urine Nitrite NEGATIVE Urine Bilirubin NEGATIVE Urine Urobilinogen NEGATIVE Urine Leukocyte Esterase NEGATIVE Urine Microscopic RBC 25 H Urine Microscopic WBC 2 Urine Hemoglobin 3+ H Urine Glucose NEGATIVE Urine Total Protein 1+ H Free Thyroxine 1.78 Test 10/18/16 16:00 Lactic Acid Level 5.9 *H Medications Medications Current Medications Ondansetron HCl (Zofran Inj) 4 mg Q6H PRN IV NAUSEA AND/OR VOMITING; Start at 12:00 Acetaminophen (Tylenol Tab) 650 mg Q6H PRN PO PAIN LEVEL 1-3 OR FEVER; Start at 12:00 Acetaminophen/ Hydrocodone Bitart ([place] (5/325)) 1 tab Q6H PRN PO MODERATE PAIN LEVEL 4-6; Start 10/18/16 at 12:00 Morphine Sulfate (morphine) 2 mg Q4H PRN IV SEVERE PAIN LEVEL 7-10; Start 10/18 at 12:00 Docusate Sodium (Colace) 100 mg Q12H PRN PO CONSTIPATION; Start 10/18/16 at 12: 00 Magnesium Hydroxide (Milk Of Mag) 30 ml DAILY PRN PO CONSTIPATION; Start at 12:00 Sodium Biphosphate/ Sodium Phosphate (Fleet Enema) 133 ml DAILY PRN [place] CONSTIPATION; Start 10/18/16 at 12:00 Famotidine (Pepcid Iv) 20 mg Q24H IV Last administered on 10/18/16 17:41; Admin Dose 20 MG; Start 10/18/16 at 14:00 Lorazepam (Ativan) 0.5 mg Q6H PRN IV ANXIETY Last administered on 10/18/16 13: 36; Admin Dose 0.5 MG; Start 10/18/16 at 12:00 Hydralazine HCl (Apresoline) 10 mg Q6H PRN IV ELEVATED BLOOD PRESSURE; Start at 12:00 Nitroglycerin 1 tab 1 tab Q5M PRN SL ANGINA; Start 10/18/16 at 12:00 Aztreonam 50 ml @ 100 mls/hr Q8 IVPB Last administered on 10/18/16 14:47; Admin Dose 100 MLS/HR; Start 10/18/16 at 14:30 Fentanyl (Sublimaze) 100 ml @ 2.5 mls/hr TITRATE ONCE IV Last administered on 10/18/16 16:27; Admin Dose 2.5 MLS/HR; Start 10/18/16 at 12:30; Stop at 04:29 Atorvastatin Calcium (Lipitor) 80 mg QHS PO ; Start 10/18/16 at 21:00 BULL DRIVER MD, [facility] Oct 18, 2016 19:00
--- NOTE | 2016-10-18 19:11 | RADRPT ---
PROCEDURE: Renal US. CLINICAL INDICATION: No acute kidney insufficiency TECHNIQUE: Multiple sonographic images of the kidneys were obtained. The images were reviewed on a PACS workstation. COMPARISON: CT of the abdomen and pelvis from 10/18/2016 FINDINGS: The bilateral kidneys are not well visualized as the patient has a horseshoe kidney seen on the CT o f the abdomen and pelvis from 10/18/2016. The visualized urinary bladder is grossly unremarkable. T he urinary bladder volume is 27 cc. IMPRESSION: 1. Limited examination as the bilateral kidneys are not identified as the patient has a horseshoe k idney. 2. Grossly unremarkable sonographic appearance of the urinary bladder. RPTAT: HPNM Physician Neno Date Time Electronically viewed and signed by Physician Neno on 10/18/2016 19:11 /
[2016-10-18 19:19] LABS: CALCIUM 7.9 mg/dl (8.4-10.2); CREATININE 2.36 mg/dl (0.61-1.24)
[2016-10-18 19:24] LABS: POTASSIUM 6.1 mmol/L (3.5-5.1)
[2016-10-18] MEDS ORDERED: ATORVASTATIN 80 MG TAB PO SCH (21:00)
[2016-10-18] MEDS ORDERED: LEVETIRACETAM 500 MG (PMX) 100 ML IVPB SCH (21:00)
[2016-10-18] MEDS: PIPER-TAZO 3.375 GM IV (PMX) 100 ML IVPB SCH (21:28)
--- NOTE | 2016-10-18 21:39 | RADRPT ---
PROCEDURE: MRI Brain without contrast. CLINICAL INDICATION: Acute stroke status post cardiac arrest TECHNIQUE: An MRI of the brain was performed on a high resolution hi-definition MRI scanner utiliz ing the following sequences: Sagittal and axial T1 weighted, axial T2 weighted, axial T2 FLAIR, axia l diffusion weighted with ADC mapping, coronal GRE, and axial FLAIR. COMPARISON: CT brain 10/18/2016 FINDINGS: On diffusion weighted sequences, restricted diffusion is present in the left frontal, parietal, temp oral and occipital cortex and left para hippocampal gyrus. In addition , the gyriform restricted di ffusion is also noted in the right frontal lobe , the right operculum, the right occipital lobe , th e left thalamus, and the bilateral cerebellar hemispheres are also noted compatible with acute ische no infarcts. On the GRE sequences, no evidence for hypointensity to suggest hemorrhagic infarcts ar e noted. Therefore, these are compatible with ischemic infarcts. On the FLAIR and T2-weighted seque nces, punctate foci of hyperintensity are noted in the bilateral centrum semiovale and periventricul ar white matter compatible with mild chronic microvascular ischemic disease. In addition FLAIR and T2 wedge shaped hyperintensity are noted in the left greater than right cerebellar hemispheres jah tible with a chronic infarcts. Ex vacuo dilatation is noted of the right lateral ventricle compatible with the previously described chronic right frontal lobe infarct. The above infarcts not ed on diffusion weighted sequences in the right frontal lobe and the bilateral cerebellar hemisphere s are compatible with acute superimposed on chronic infarcts. No evidence for extra-axial fluid dayna ections are present. The ventricles sulci and cisterns are again compatible with ex vacuo dilatatio n of the right lateral ventricle with moderate diffuse volume loss present. Normal signal flow void s are present in the right middle cerebral artery circulation without significant flow void in the l eft middle cerebral artery distribution compatible with above described infarct. Consider CT angiog neelima or MR angiography to further evaluate. The cortical larger dural sinuses are patent. The scalp and calvarium are normal. The bilateral orbits are normal. The paranasal sinuses demonstr ate mild chronic mucosal thickening in the bilateral frontal, ethmoid, maxillary and sphenoid sinuse s. The bilateral mastoid air cells demonstrate the presence of fluid. The bilateral middle ear cavi ties are clear. IMPRESSION: 1. Acute, left frontal parietal temporal and occipital lobe ischemic infarcts with involvement of t he left insula, left thalamus and left para hippocampal gyrus. 2. Acute ischemic right frontal lobe superimposed on chronic right frontal lobe infarct. 3. Acute ischemic right occipital lobe and bilateral cerebellar hemispheric infarct superimposed on chronic bilateral cerebellar infarcts. 4. No evidence for acute hemorrhage hydrocephalus or herniation. 5. Ex vacuo dilatation of the right lateral ventricle with moderate diffuse volume loss. 6. Chronic pansinusitis as noted above. 7. Interval decreased flow void in the left middle cerebral artery distribution and consider CT ang iography or MR angiography to further evaluate. A call report was made to Dr. Kwok at 10/18/2016 9:28:58 PM following the completion of the examina tion by the undersigned. RPTAT: HDC .Mary Alice Weber MD, MD Date Time Electronically viewed and signed by .Mary Alice Weber MD, MD on 10/18/2016 21:39 .C/
--- NOTE | 2016-10-18 21:43 | RADRPT ---
PROCEDURE: MRA Neck without contrast. CLINICAL INDICATION: Stroke status post cardiac arrest TECHNIQUE: An MRA of the major cervical arteries was performed on a 3.0 Courtney scanner utilizing ax ial 2D time of flight and localized 3-D [id number] to the carotid bifurcations. Additionally, a nd 3-D [id number] MR angiogram was performed through the brain. No IV contrast was given as ord ered. Source and MIPPED images were reviewed. COMPARISON: No prior studies are available for comparison. FINDINGS: MRA neck: The common carotid arteries are patent and normal in caliber. The carotid bulbs appear n ormal, and no hemodynamically significant stenosis is evident within either internal carotid artery. The vertebral arteries are patent and normal in caliber bilaterally. A dominant right vertebral ar yarely is present. There is no evidence of vascular stenosis or occlusion. IMPRESSION: 1. Normal noncontrast MR angiogram of the neck RPTAT: HDC .Mary Aliec Weber MD, MD Date Time Electronically viewed and signed by .Mary Alice Weber MD, on 10/18/2016 21:43 .C/
[2016-10-18] MEDS: ATORVASTATIN 80 MG TAB PO SCH (22:11)
[2016-10-18] MEDS: SOD CHLORIDE 0.45% 1,000 ML IV SCH (22:14)
--- NOTE | 2016-10-18 23:31 | QN ---
Documentation Comment No current vascular intervention as he is medically unstable and will need cardiac clearance, unless aortic rupture/leak. Recommend Obtaining CT Angiogram for better delineation of the aortic anatomy ASHLEY VOGT MD Oct 18, 2016 23:31
[2016-10-19] VITALS (32 sets, daily range): BP systolic 87–111; BP diastolic 54–72; PULSE 50–82; RESP 14–28; TEMP 98; Ht 167.6 cm; Wt 82.5 kg
[2016-10-19] MEDS: PIPER-TAZO 3.375 GM IV (PMX) 100 ML IVPB SCH ×3 (03:23→19:48)
[2016-10-19 05:14] LABS: HEMATOCRIT 36.1 % (42.0-52.0); HEMOGLOBIN 11.7 g/dl (14.0-18.0); MEAN CORPUSCULAR HEMOGLOBIN 29.6 pg (29.0-33.0); MEAN CORPUSCULAR HGB CONC 32.4 g/dl (32.0-37.0); MEAN CORPUSCULAR VOLUME 91.4 fl (82.0-101.0); MEAN PLATELET VOLUME 8.9 fl (7.4-10.4); PLATELET COUNT 109 10^3/UL (140-415); POSITIVE DIFF @See below; RED BLOOD COUNT 3.95 10^6/ul (4.70-6.10); RED CELL DISTRIBUTION WIDTH 13.5 % (11.5-14.5); WHITE BLOOD COUNT 11.5 10^3/ul (4.8-10.8)
[2016-10-19 05:51] LABS: CALCIUM 7.8 mg/dl (8.4-10.2); CREATININE 2.68 mg/dl (0.61-1.24); MAGNESIUM 1.9 mg/dl (1.7-2.5); PHOSPHORUS 5.9 mg/dl (2.5-4.9); POTASSIUM 5.6 mmol/L (3.5-5.1)
[2016-10-19] MEDS: AZTREONAM 1 GM/NS (PMX) 50 ML IVPB SCH (06:03)
[2016-10-19 06:17] LABS: LYMPHOCYTES # 0.2 10^3/ul (0.8-2.9); MONOCYTE # 0.7 10^3/ul (0.3-0.9); NEUTROPHIL # 9.5 10^3/ul (1.6-7.5)
[2016-10-19 06:21] LABS: THYROID STIMULATING HORMONE 2.53 MIU/L (0.465-4.680)
--- NOTE | 2016-10-19 07:59 | CONS ---
Date/Time of Note Date/Time of Note DATE: 10/19/16 TIME: 07:50 Assessment/Plan Assessment/Plan Additional Assessment/Plan 81 yo male s/p cardiac arrest , found down for greater than 10 mins per records. Pt now intubated CT findings are c/w acute CVA ... there are no family members available or contact information in patients chart. Will find family members .... Consultation Date/Type/Reason Admit Date/Time Past Medical History Medical History: other (unknown) Past Surgical History Past Surgical Hx: other Social History Smoking Status: Never smoker Exam/Review of Systems Vital Signs Vitals Vital Signs Date Time Temp Pulse Resp B/P Pulse Ox O2 Delivery O2 Flow Rate FiO2 10/19/16 05:52 97.1 52 22 113/60 97 Mechanical Ventilator 10/19/16 05:40 100 10/18/16 19:00 10.0 Exam Constitutional: other (Intubated and sedated) Head: atraumatic, normocephalic Neck: non-tender, supple Respiratory: congested cough, crackles/rales, diminished breath sounds Cardiovascular: nl pulses, regular rate and rhythm Neurological: unresponsive Results Result Diagram: 10/19/16 0505 10/19/16 0505 Results 24 hrs Laboratory Tests Test 10/18/16 08:45 10/18/16 09:30 10/18/16 11:25 10/18/16 13:40 White Blood Count 5.8 Red Blood Count 4.35 L Hemoglobin 13.0 L Hematocrit 42.4 Mean Corpuscular Volume 97.5 Mean Corpuscular Hemoglobin 29.9 Mean Corpuscular Hemoglobin Concent 30.7 L Red Cell Distribution Width 13.3 Platelet Count 127 L Mean Platelet Volume 9.7 Neutrophils % 36.0 L Band Neutrophils % 4.0 Lymphocytes % 55.0 H Monocytes % 3.0 Eosinophils % 2.0 Neutrophils # 2.1 Lymphocytes # 3.2 H Monocytes # 0.2 L Eosinophils # 0.1 Prothrombin Time 20.8 H Prothrombin Time Ratio 1.6 INR International Normalized Ratio 1.77 Activated Partial Thromboplast Time 85.3 *H Sodium Level 143 Potassium Level 5.3 H Chloride Level 104 Carbon Dioxide Level 20 L Anion Gap 24 H Blood Urea Nitrogen 31 H Creatinine 2.22 H Glucose Level 240 H Lactic Acid Level 8.5 *H 6.6 *H 7.5 *H Calcium Level 8.7 Total Bilirubin 0.3 Direct Bilirubin 0.00 Indirect Bilirubin 0.3 Aspartate Amino Transf (AST/SGOT) 27 Alanine Aminotransferase (ALT/SGPT) 23 Alkaline Phosphatase 167 H Troponin I 0.034 1.870 *H Total Protein 7.3 Albumin 3.4 Globulin 3.90 H Albumin/Globulin Ratio 0.87 Urine Color YELLOW Urine Clarity SLIGHTLY CLOUDY A Urine pH 5.0 Urine Specific [place] 1.014 Urine Ketones NEGATIVE Urine Nitrite NEGATIVE Urine Bilirubin NEGATIVE Urine Urobilinogen NEGATIVE Urine Leukocyte Esterase NEGATIVE Urine Microscopic RBC 25 H Urine Microscopic WBC 2 Urine Hemoglobin 3+ H Urine Glucose NEGATIVE Urine Total Protein 1+ H Free Thyroxine 1.78 Test 10/18/16 16:00 10/18/16 17:00 10/19/16 05:05 Lactic Acid Level 5.9 *H Sodium Level 144 143 Potassium Level 6.1 *H 5.6 H Chloride Level 108 107 Carbon Dioxide Level 19 L 20 L Anion Gap 23 H 22 H Blood Urea Nitrogen 36 H 45 H Creatinine 2.36 H 2.68 H Glucose Level 227 H 215 Calcium Level 7.9 L 7.8 L White Blood Count 11.5 #H Red Blood Count 3.95 L Hemoglobin 11.7 L Hematocrit 36.1 L Mean Corpuscular Volume 91.4 Mean Corpuscular Hemoglobin 29.6 Mean Corpuscular Hemoglobin Concent 32.4 Red Cell Distribution Width 13.5 Platelet Count 109 L Mean Platelet Volume 8.9 Neutrophils % 83.0 H Lymphocytes % 2.0 L Monocytes % 6.0 Eosinophils % Basophils % Nucleated Red Blood Cells % 0.0 Neutrophils # 9.5 H Band Neutrophils # 9.5 H Lymphocytes # 0.2 L Monocytes # 0.7 Eosinophils # Basophils # Nucleated Red Blood Cells # Hemoglobin A1c 6.9 H Phosphorus Level 5.9 H Magnesium Level 1.9 Triglycerides Level 102 Cholesterol Level 105 LDL Cholesterol, Calculated 64 HDL Cholesterol 21 L Cholesterol/HDL Ratio 5.0 Thyroid Stimulating Hormone (TSH) 2.530 Medications Medications Current Medications Ondansetron HCl (Zofran Inj) 4 mg Q6H PRN IV NAUSEA AND/OR VOMITING; Start at 12:00 Acetaminophen (Tylenol Tab) 650 mg Q6H PRN PO PAIN LEVEL 1-3 OR FEVER; Start at 12:00 Acetaminophen/ Hydrocodone Bitart ([place] (5/325)) 1 tab Q6H PRN PO MODERATE PAIN LEVEL 4-6; Start 10/18/16 at 12:00 Morphine Sulfate (morphine) 2 mg Q4H PRN IV SEVERE PAIN LEVEL 7-10; Start 10/18 at 12:00 Docusate Sodium (Colace) 100 mg Q12H PRN PO CONSTIPATION; Start 10/18/16 at 12: 00 Magnesium Hydroxide (Milk Of Mag) 30 ml DAILY PRN PO CONSTIPATION; Start at 12:00 Sodium Biphosphate/ Sodium Phosphate (Fleet Enema) 133 ml DAILY PRN IN CONSTIPATION; Start 10/18/16 at 12:00 Famotidine (Pepcid Iv) 20 mg Q24H IV Last administered on 10/18/16 17:41; Admin Dose 20 MG; Start 10/18/16 at 14:00 Lorazepam (Ativan) 0.5 mg Q6H PRN IV ANXIETY Last administered on 10/18/16 13: 36; Admin Dose 0.5 MG; Start 10/18/16 at 12:00 Hydralazine HCl (Apresoline) 10 mg Q6H PRN IV ELEVATED BLOOD PRESSURE; Start at 12:00 Nitroglycerin 1 tab 1 tab Q5M PRN SL ANGINA; Start 10/18/16 at 12:00 Aztreonam 50 ml @ 100 mls/hr Q8 IVPB Last administered on 10/19/16 06:03; Admin Dose 100 MLS/HR; Start 10/18/16 at 14:30 Fentanyl (Sublimaze) 100 ml @ 2.5 mls/hr TITRATE ONCE IV Last administered on 10/18/16 16:27; Admin Dose 2.5 MLS/HR; Start 10/18/16 at 12:30; Stop at 04:29 Atorvastatin Calcium 80 mg 80 mg QHS PO Last administered on 10/18/16 22:11; Admin Dose 80 MG; Start 10/18/16 at 21:00 Piperacillin Sod/ Tazobactam Sod 100 ml @ 200 mls/hr Q8H IVPB Last administered on 10/19/16 03:23; Admin Dose 200 MLS/HR; Start 10/18/16 at 19:00 Levetiracetam 100 ml @ 400 mls/hr Q12 IVPB Last administered on 10/18/16 22: 42; Admin Dose 400 MLS/HR; Start 10/18/16 at 21:00 Sodium Chloride (1/2 NS) 1,000 ml @ 60 mls/hr [id number] IV Last administered on 10/18/16 22:14; Admin Dose 60 MLS/HR; Start 10/18/16 at 20:00 AUDREY HERNANDEZ Oct 19, 2016 07:59
[2016-10-19] MEDS ORDERED: VANCOMYCIN 1 GM (PMX) 250 ML IVPB ONE (08:30)
--- NOTE | 2016-10-19 08:36 | RADRPT ---
PROCEDURE: XR Chest. CLINICAL INDICATION: Respiratory failure TECHNIQUE: Single AP portable chest. COMPARISON: None. Chest x-ray FINDINGS: The cardiac silhouette is enlarged but stable in size. Persistent mild vascular congestion. Endotr acheal tube tip 5 cm above the moo. NG tube tip overlies the body of the stomach. Atherosclero tic calcification of the aorta. Persistent bilateral increased vascular markings with right upper lo be patchy airspace opacity. No pneumothorax. The osseous structures and soft tissues are unremarkabl e. IMPRESSION: 1. No interval change in mild vascular congestion, cardiomegaly, and right upper lobe airspace opaci ty. 2. Square plexus in stable and satisfactory position . RPTAT:AAJJ Physician Naldo Date Time Electronically viewed and signed by Physician Naldo on 10/19/2016 08:35 SHANA/
[2016-10-19] MEDS ORDERED: FUROSEMIDE 40 MG INJ IV ONE (11:00)
[2016-10-19] MEDS ORDERED: LEVETIRACETAM 500 MG (PMX) 100 ML IVPB SCH (11:00)
[2016-10-19] MEDS ORDERED: NA POLYST SULFON 15 GM/60 ML BTL PR ONE (11:00)
[2016-10-19] MEDS ORDERED: LORAZEPAM 2 MG INJ IV PRN (11:00)
[2016-10-19 12:01] LABS: AADO2 Arterial 553.4 mmHg (7.0-24.0); Allen Test ACCEPTAB; Arterial Base Excess -7.9 mmol/L (-3.0-3); Arterial COHb 0.3 % (0.0-3.0); Arterial Fraction of Oxyhgb 97.5 % (93.0-99.0); Arterial HCO3 16.8 mmol/L (22.0-26.0); Arterial MetHb 0.4 % (0.0-1.5); Arterial Total Hemglobin 13.6 g/dl (12.0-18.0); MODE VENT - AC
--- NOTE | 2016-10-19 12:14 | HP ---
DATE OF ADMISSION: 10/18/2016 CHIEF COMPLAINT: Cardiac arrest. HISTORY OF PRESENT ILLNESS: This an 81-year-old male with unknown past medical history, who was brought in by EMS because of a cardiac arrest. Most of the information is obtained from the ER documentation as the patient is presently intubated. Apparently the patient was on the toilet at home when he arrested, and apparently it was around 15-20 minutes before any CPR could be administered to the patient and that was performed by EMS when they arrived, so it is unclear how long the patient was down at home before CPR was initiated. The initial rhythm showed PEA. Patient was intubated by paramedics in the field, and they performed CPR and administered epinephrine x2 before the patient had return of spontaneous circulation; however, he has not been responsive since. Patient, according to medical records, apparently is on Coreg and possibly Plavix at home. When patient arrived to the ER, he was found to have elevated troponins, and his lactic acid was elevated to 8.5. CT scan of abdomen and pelvis also showed a 6 cm AAA but no signs of any rupture. Head CT also showed subtle blurring of the great white matter differentiation and mild sulcal effacement involving the left parietal and posterior temporal lobes suggesting an acute infarct. Cardiology team has already come and evaluated the patient as well. PAST MEDICAL HISTORY: As stated above. ALLERGIES: NO KNOWN DRUG ALLERGIES. HOME MEDICATIONS: 1. Donepezil 10 mg daily. 2. Ferrous sulphate 325 mg t.i.d. 3. Atorvastatin 80 mg nightly. 4. Coreg 12.5 mg b.i.d. 5. Aspirin 81 mg daily. 6. Lasix 20 mg p.o. daily. PAST SURGICAL HISTORY: Unknown. FAMILY HISTORY: Unknown. SOCIAL HISTORY: Apparently negative for smoking. The rest of the social history unknown today. PHYSICAL EXAMINATION: VITAL SIGNS: T-max 95.3, pulse 51, respirations 14, blood pressure 113/84, satting 100 percent on room air. GENERAL: The patient is lying in bed, intubated, nonresponsive, although he looks like he has some involuntary movements as he is shaking his head but, again, not alert and oriented. HEENT: Unable to fully assess because patient is intubated. NECK: Supple. No thyromegaly. LUNGS: Decreased breath sounds bilaterally. CARDIOVASCULAR: A 2/6 systolic murmur heard. S1 and S2 heard. Bradycardic heart rate. ABDOMEN: Soft, nontender, nondistended. Normal bowel sounds. No rebound or guarding. MUSCULOSKELETAL: No lower extremity edema bilaterally. NEUROLOGIC: Unable to fully assess because patient is intubated. LABS: WBC 5.8, hemoglobin 13.0, hematocrit 42.4, platelets 127. Sodium 143, potassium 5.3, chloride 104, CO2 20. BUN 31, creatinine 2.22. Glucose 240. LFTs are essentially normal except alk phos is 167. Coags show an INR of 1.77. UA shows slightly cloudy urine, negative nitrites, negative leukocyte esterase. IMAGING: Again, the head CT results we mentioned above in the HPI. Chest x-ray did show borderline cardiomegaly with mild pulmonary vascular congestion and possible mild interstitial edema. Linear opacities in the right midlung may represent atelectasis, scarring, and/or trace fluid in the fissure. 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 Of note, echocardiogram was performed, and it shows normal left ventricular cavity size, normal left ventricular wall thickness, severe global left ventricular systolic dysfunction, EF 25 percent, akinesis of the apex and anterolateral arteaga. Anterior wall was not well seen but appears hypokinetic. [id number] inferolateral inferior arteaga are hypokinetic as well. Mild-to- moderate mitral valve regurgitation, mild aortic valve regurgitation, small pericardial effusion. ASSESSMENT AND PLAN: This is an 81-year-old male status post cardiac arrest, found with abdominal aortic aneurysm, acute; left parietal and posterior temporal lobe infarcts; lactic acidosis, now intubated with respiratory distress. 1. Status post cardiac arrest. Admit patient to intensive care unit. Trend troponins. Follow up cardiology per their recommendations. Continue medical treatment for now. They are going to defer cardiac catheterization and internal cardioverter defibrillator (ICD) evaluation until the patient recovers mentally, if that is possible. Continue statin. Hold beta khushbu for now given patient's bradycardia. Consider restarting Plavix but will discuss with vascular surgery and cardiology teams given the patients abdominal aortic aneurysm. 2. Abdominal aortic aneurysm, again, 6 cm. Follow vascular surgery recommendations. Patient most likely needs to be more medically stable before any considerations for any possible surgeries could be obtained or could be considered. 3. Acute ischemic infarct. Will get MRI/MRA of the brain. Consider carotid Dopplers as well. Do neurologic checks and cautiously consider aspirin given the fact he has an abdominal aortic aneurysm. 4. Acute ischemic infarct. Again head CT showed findings of acute ischemic infarct in the left parietal and posterior temporal lobes. get an MRI and MRA of the brain. Consider doing neurologic checks and continue statins as well high dose. Get neurology consultation as well. Get PT and OT consults as well as Speech Therapy conult. 5. Renal insufficiency. Creatinine is 2.22. We will get a renal consult as well. Monitor urine output. Cautiously give IV fluids given the patient's signs of severe congestive heart failure and cardiomyopathy. 6. Gastrointestinal prophylaxis, H2 khushbu. 7. Deep venous thrombosis prophylaxis. We will use SCDs for now. 8. Dispo: Consider Palliative Care consult given the patient's multiple comorbidities. Dictated By: Dm Vivas MD /damon/ahsan /Document#: [id number] MILLI
--- NOTE | 2016-10-19 12:14 | HP ---
DATE OF ADMISSION: 10/18/2016 Dictated By: Dm Vivas MD /damon/marti /Document#: [id number] MTDD
--- NOTE | 2016-10-19 12:48 | PN ---
Date/Time of Note Date/Time of Note DATE: 10/19/16 TIME: 12:42 Assessment/Plan VTE Prophylaxis VTE Prophylaxis Intervention: SCD's Assessment/Plan Chief Complaint/Hosp Course ASSESSMENT AND PLAN: This is an 81-year-old male status postcardiac arrest, found with abdominal aortic aneurysm, acute; left parietal and posterior temporal lobe infarcts; lactic acidosis,now intubated with respiratory distress. 1. Status post cardiac arrest-patient evaluated by cardiology team. Still intubated. -Continue care in intensive care unit. Trend troponins. -Follow up cardiology per their recommendations. -Continue medical treatment for now. They are going to defer cardiac catheterization and internal cardioverter defibrillator (ICD) evaluation until the patient recovers mentally, if that is possible. -Continue statin. -Hold beta khushbu for now given patient's bradycardia. - Consider restarting Plavix but will discuss with vascular surgery and cardiology teams given the patients abdominal aortic aneurysm. 2. Abdominal aortic aneurysm, again, 6 cm. -Follow vascular surgery recommendations. Patient most likely needs to be more medically stable before any considerations for any possible surgeries could be obtained or could be considered. 3. Acute ischemic infarct. MRI/MRA of the brain shows: Acute, left frontal parietal temporal and occipital lobe ischemic infarcts with involvement of the left insula, left thalamus and left para hippocampal gyrus. . Acute ischemic right frontal lobe superimposed on chronic right frontal lobe infarct. Acute ischemic right occipital lobe and bilateral cerebellar hemispheric infarct superimposed on chronic bilateral cerebellar infarcts. No evidence for acute hemorrhage hydrocephalus or herniation. -Do neurologic checks and cautiously consider aspirin given the fact he has an abdominal aortic aneurysm. - Consider doing neurologic checks and continue statins as well high dose. Follow-up neurology consultation as well. - Get PT and OT consults as well as Speech Therapy conult. 5. Renal insufficiency. Creatinine more elevated today. -Follow-up renal consult recommendation as well. - Monitor urine output. 6. Gastrointestinal prophylaxis, H2 khushbu. 7. Deep venous thrombosis prophylaxis. - SCDs for now. 8. Dispo: Consider Palliative Care consult given the patient's multiple comorbidities. Critical care time spent on patient care today equals 45 minutes. EEG has been performed and is pending. Overall suspect poor prognosis. Problems: Subjective 24 Hr Interval Summary Free Text/Dictation Patient had MRI and MRA of the brain performed. Still intubated, seen by pulmonary, cardiac, renal teams. On broad-spectrum antibiotics now with positive bacteremia. Exam/Review of Systems Vital Signs Vitals Vital Signs Date Time Temp Pulse Resp B/P Pulse Ox O2 Delivery O2 Flow Rate FiO2 10/19/16 10:00 50 16 100 10/19/16 08:00 98.0 109/56 96 Mechanical Ventilator 10.0 Exam GENERAL: The patient is lying in bed, intubated, nonresponsive, although he looks like he has some involuntary movements as he is shaking his head but, again, not alert and oriented. HEENT: Unable to fully assess because patient is intubated. NECK: Supple. No thyromegaly. LUNGS: Decreased breath sounds bilaterally. CARDIOVASCULAR: A 2/6 systolic murmur heard. S1 and S2 heard. Bradycardic heart rate. ABDOMEN: Soft, nontender, nondistended. Normal bowel sounds. No rebound or guarding. MUSCULOSKELETAL: No lower extremity edema bilaterally. NEUROLOGIC: Unable to fully assess because patient is intubated. Results Result Diagram: 10/19/16 0505 10/19/16 0505 Results 24 hrs Laboratory Tests Test 10/18/16 13:40 10/18/16 16:00 10/18/16 17:00 10/19/16 05:05 Lactic Acid Level 7.5 *H 5.9 *H Troponin I 1.870 *H Free Thyroxine 1.78 Sodium Level 144 143 Potassium Level 6.1 *H 5.6 H Chloride Level 108 107 Carbon Dioxide Level 19 L 20 L Anion Gap 23 H 22 H Blood Urea Nitrogen 36 H 45 H Creatinine 2.36 H 2.68 H Glucose Level 227 H 215 Calcium Level 7.9 L 7.8 L White Blood Count 11.5 #H Red Blood Count 3.95 L Hemoglobin 11.7 L Hematocrit 36.1 L Mean Corpuscular Volume 91.4 Mean Corpuscular Hemoglobin 29.6 Mean Corpuscular Hemoglobin Concent 32.4 Red Cell Distribution Width 13.5 Platelet Count 109 L Mean Platelet Volume 8.9 Neutrophils % 83.0 H Lymphocytes % 2.0 L Monocytes % 6.0 Eosinophils % Basophils % Nucleated Red Blood Cells % 0.0 Neutrophils # 9.5 H Band Neutrophils # 9.5 H Lymphocytes # 0.2 L Monocytes # 0.7 Eosinophils # Basophils # Nucleated Red Blood Cells # Hemoglobin A1c 6.9 H Phosphorus Level 5.9 H Magnesium Level 1.9 Triglycerides Level 102 Cholesterol Level 105 LDL Cholesterol, Calculated 64 HDL Cholesterol 21 L Cholesterol/HDL Ratio 5.0 Thyroid Stimulating Hormone (TSH) 2.530 Test 10/19/16 07:00 Blood Gas Specimen Source Blood arterial Arterial Blood Date Drawn 10/19/2016 11:55:20 AM Arterial Blood pH (Temp corrected) 7.337 L Arterial Blood pCO2 (Temp correct) 32.0 L Arterial Blood pO2 (Temp corrected) 127.6 H Arterial Blood HCO3 16.8 L Arterial Blood Base Excess -7.9 L Arterial Blood Oxygen Saturation 98.2 Perry Test ACCEPTAB Arterial Blood Gas Puncture Site Right Radial Arterial Blood Carboxyhemoglobin 0.3 Arterial Blood Methemoglobin 0.4 Blood Gas A-a O2 Differential 553.4 H Oxyhemoglobin Percent 97.5 Total Hemoglobin 13.6 Blood Gas Temperature 37.0 Blood Gas Respiration Rate 14.0 Blood Gas Actual Respiration Rate 16 Blood Gas Modality VENT - AC FiO2 100.0 Blood Gas Tidal Volume 500.0 Blood Gas Low PEEP Setting 5.0 Blood Gas Notified Whom CW Blood Gas Notified Time 10/19/2016 12:00:43 PM Medications Medications Current Medications Ondansetron HCl (Zofran Inj) 4 mg Q6H PRN IV NAUSEA AND/OR VOMITING; Start at 12:00 Acetaminophen (Tylenol Tab) 650 mg Q6H PRN PO PAIN LEVEL 1-3 OR FEVER; Start at 12:00 Acetaminophen/ Hydrocodone Bitart ([place] (5/325)) 1 tab Q6H PRN PO MODERATE PAIN LEVEL 4-6; Start 10/18/16 at 12:00 Morphine Sulfate (morphine) 2 mg Q4H PRN IV SEVERE PAIN LEVEL 7-10; Start 10/18 at 12:00 Docusate Sodium (Colace) 100 mg Q12H PRN PO CONSTIPATION; Start 10/18/16 at 12: 00 Magnesium Hydroxide (Milk Of Mag) 30 ml DAILY PRN PO CONSTIPATION; Start at 12:00 Sodium Biphosphate/ Sodium Phosphate (Fleet Enema) 133 ml DAILY PRN ND CONSTIPATION; Start 10/18/16 at 12:00 Famotidine (Pepcid Iv) 20 mg Q24H IV Last administered on 10/18/16t 17:41; Admin Dose 20 MG; Start 10/18/16 at 14:00 Lorazepam (Ativan) 0.5 mg Q6H PRN IV ANXIETY Last administered on 10/18/16 13: 36; Admin Dose 0.5 MG; Start 10/18/16 at 12:00 Hydralazine HCl (Apresoline) 10 mg Q6H PRN IV ELEVATED BLOOD PRESSURE; Start at 12:00 Nitroglycerin 1 tab 1 tab Q5M PRN SL ANGINA; Start 10/18/16 at 12:00 Aztreonam 50 ml @ 100 mls/hr Q8 IVPB Last administered on 10/19/16 06:03; Admin Dose 100 MLS/HR; Start 10/18/16 at 14:30 Fentanyl (Sublimaze) 100 ml @ 2.5 mls/hr TITRATE ONCE IV Last administered on 10/18/16 16:27; Admin Dose 2.5 MLS/HR; Start 10/18/16 at 12:30; Stop at 04:29 Atorvastatin Calcium 80 mg 80 mg QHS PO Last administered on 10/18/16 22:11; Admin Dose 80 MG; Start 10/18/16 at 21:00 Piperacillin Sod/ Tazobactam Sod 100 ml @ 200 mls/hr Q8H IVPB Last administered on 10/19/16 03:23; Admin Dose 200 MLS/HR; Start 10/18/16 at 19:00 Levetiracetam 100 ml @ 400 mls/hr Q12 IVPB Last administered on 10/18/16 22: 42; Admin Dose 400 MLS/HR; Start 10/18/16 at 21:00 Sodium Chloride (1/2 NS) 1,000 ml @ 60 mls/hr [id number] IV Last administered on 10/18/16 22:14; Admin Dose 60 MLS/HR; Start 10/18/16 at 20:00 Lorazepam (Ativan) 2 mg Q10MIN PRN IV SEIZURES; Start 10/19/16 at 11:00 Insulin Aspart (Novolog Insulin Pen) NOVOLOG *MILD* ALGORI... Q4 SC ; Start at 13:30 Miscellaneous Information 1 ea NOTE XX ; Start 10/19/16 at 13:00 Glucose (Glutose) 15 gm Q15M PRN PO DECREASED GLUCOSE; Start 10/19/16 at 13:00 Glucose (Glutose) 22.5 gm Q15M PRN PO DECREASED GLUCOSE; Start 10/19/16 at 13: 00 Dextrose (D50w Syringe) 25 ml Q15M PRN IV DECREASED GLUCOSE; Start 10/19/16 at 13:00 Dextrose (D50w Syringe) 50 ml Q15M PRN IV DECREASED GLUCOSE; Start 10/19/16 at 13:00 Glucagon (Glucagen) 1 mg Q15M PRN IM DECREASED GLUCOSE; Start 10/19/16 at 13:00 Glucose (Glutose) 15 gm Q15M PRN BUCCAL DECREASED GLUCOSE; Start 10/19/16 at 13 :00 JAZ BRISCOE Oct 19, 2016 12:48
--- NOTE | 2016-10-19 12:49 | RADRPT ---
PROCEDURE: XR Chest. CLINICAL INDICATION: Shortness of breath. TECHNIQUE: A single portable view of the chest was obtained. COMPARISON: 10/19/2016 from 07:17 a.m. FINDINGS: The endotracheal tube is essentially unchanged. A nasogastric tube is again noted, the tip of which is not visualized. The aorta is tortuous and atherosclerotic. The cardiomediastinal silhouette is otherwise enlarged and is stable. Diffuse pulmonary vascular congestion is again seen and is stable . Patchy air space disease in the right upper lung zone/ perihilar region is once again seen. The cristian ng volumes are low. The possibility small pleural effusions cannot be excluded. The soft tissues an d osseous structures demonstrate benign age related senescent changes. IMPRESSION: 1. Patchy air space disease in the right upper lung zone/perihilar region again seen which has not changed significantly. 2. Diffuse pulmonary vascular congestion again noted which has not changed significantly. RPTAT: HPNM Physician Neno Date Time Electronically viewed and signed by Physician Neno on 10/19/2016 12:48 /
[2016-10-19] MEDS ORDERED: GLUCOSE GEL 15 GRAM TUBE PO PRN ×2 (13:00)
[2016-10-19] MEDS ORDERED: GLUCOSE GEL 15 GRAM TUBE BUCCAL PRN (13:00)
[2016-10-19] MEDS ORDERED: GLUCAGON 1 MG INJ IM PRN (13:00)
[2016-10-19] MEDS ORDERED: DEXTROSE 50% 50 ML SYRINGE IV PRN ×2 (13:00)
--- NOTE | 2016-10-19 13:34 | CONS ---
Date/Time of Note Date/Time of Note DATE: 10/19/16 TIME: 13:30 Assessment/Plan Assessment/Plan Additional Assessment/Plan Chest x-ray was reviewed from today which is showing endotracheal tube now at an adequate level. Very minimal perivascular congestion is present. Assessment recommendations; 1. Patient admitted with cardiac arrest status post CPR. 2. Renal insufficiency. 3. Difficult to rule out superimposed pneumonia. 4. Acute CVA. 5. History hypertension and hyperlipidemia. 6. Coagulopathy. Continue current treatment. Obtain follow-up chest x-ray. Prognosis depends upon adequate mental status recovery. Monitor renal function. Consultation Date/Type/Reason Admit Date/Time Date of Consultation: Oct 19, 2016 Type of Consultation: Pulmonary/critical care Reason for Consultation Particle patient requested for evaluation of respiratory failure. History presenting any; patient is an 80-year-old white male who brought to emergency room after sustaining cardiac arrest event at home with 10-15 minutes CPR with revival of vital signs. By the time I saw the patient, the patient is orally intubated, unresponsive. Because of coagulation disorder , patient was not deemed a candidate for hypothermia protocol. Past medical Hypertension. 2. Hyperlipidemia. Medications; reviewed. Allergies; penicillin and terazosin. Family history; occupational history; social history is not available. Review of systems; unable to be obtained. General exam; elderly male, oriented, unresponsive, currently in no distress. Past Medical History Medical History: other (unknown) Past Surgical History Past Surgical Hx: other Social History Smoking Status: Never smoker Exam/Review of Systems Vital Signs Vitals Vital Signs Date Time Temp Pulse Resp B/P Pulse Ox O2 Delivery O2 Flow Rate FiO2 10/19/16 10:00 50 16 100 10/19/16 08:00 98.0 109/56 96 Mechanical Ventilator 10.0 Exam HEENT exam; supple neck, pupils are midsize and fixed. Orally intubated. No neck masses. No thyromegaly. Midline trachea. No neck bruits. Supple neck. Chest exam; did not clear vessel. S1-S2 audible, no murmurs. Regular rhythm. Abdomen exam; soft, no organomegaly. Bowel sounds audible. Extremity exam; no peripheral edema. CONFERENCE ASSISTANT exam; patient is currently unresponsive. Results Result Diagram: 10/19/16 0505 10/19/16 0505 Results 24 hrs Laboratory Tests Test 10/18/16 13:40 10/18/16 16:00 10/18/16 17:00 10/19/16 05:05 Lactic Acid Level 7.5 *H 5.9 *H Troponin I 1.870 *H Free Thyroxine 1.78 Sodium Level 144 143 Potassium Level 6.1 *H 5.6 H Chloride Level 108 107 Carbon Dioxide Level 19 L 20 L Anion Gap 23 H 22 H Blood Urea Nitrogen 36 H 45 H Creatinine 2.36 H 2.68 H Glucose Level 227 H 215 Calcium Level 7.9 L 7.8 L White Blood Count 11.5 #H Red Blood Count 3.95 L Hemoglobin 11.7 L Hematocrit 36.1 L Mean Corpuscular Volume 91.4 Mean Corpuscular Hemoglobin 29.6 Mean Corpuscular Hemoglobin Concent 32.4 Red Cell Distribution Width 13.5 Platelet Count 109 L Mean Platelet Volume 8.9 Neutrophils % 83.0 H Lymphocytes % 2.0 L Monocytes % 6.0 Eosinophils % Basophils % Nucleated Red Blood Cells % 0.0 Neutrophils # 9.5 H Band Neutrophils # 9.5 H Lymphocytes # 0.2 L Monocytes # 0.7 Eosinophils # Basophils # Nucleated Red Blood Cells # Hemoglobin A1c 6.9 H Phosphorus Level 5.9 H Magnesium Level 1.9 Triglycerides Level 102 Cholesterol Level 105 LDL Cholesterol, Calculated 64 HDL Cholesterol 21 L Cholesterol/HDL Ratio 5.0 Thyroid Stimulating Hormone (TSH) 2.530 Test 10/19/16 07:00 Blood Gas Specimen Source Blood arterial Arterial Blood Date Drawn 10/19/2016 11:55:20 AM Arterial Blood pH (Temp corrected) 7.337 L Arterial Blood pCO2 (Temp correct) 32.0 L Arterial Blood pO2 (Temp corrected) 127.6 H Arterial Blood HCO3 16.8 L Arterial Blood Base Excess -7.9 L Arterial Blood Oxygen Saturation 98.2 Perry Test ACCEPTAB Arterial Blood Gas Puncture Site Right Radial Arterial Blood Carboxyhemoglobin 0.3 Arterial Blood Methemoglobin 0.4 Blood Gas A-a O2 Differential 553.4 H Oxyhemoglobin Percent 97.5 Total Hemoglobin 13.6 Blood Gas Temperature 37.0 Blood Gas Respiration Rate 14.0 Blood Gas Actual Respiration Rate 16 Blood Gas Modality VENT - AC FiO2 100.0 Blood Gas Tidal Volume 500.0 Blood Gas Low PEEP Setting 5.0 Blood Gas Notified Whom Blood Gas Notified Time 10/19/2016 12:00:43 PM Medications Medications Current Medications Ondansetron HCl (Zofran Inj) 4 mg Q6H PRN IV NAUSEA AND/OR VOMITING; Start at 12:00 Acetaminophen (Tylenol Tab) 650 mg Q6H PRN PO PAIN LEVEL 1-3 OR FEVER; Start at 12:00 Acetaminophen/ Hydrocodone Bitart ([place] (5/325)) 1 tab Q6H PRN PO MODERATE PAIN LEVEL 4-6; Start 10/18/16 at 12:00 Morphine Sulfate (morphine) 2 mg Q4H PRN IV SEVERE PAIN LEVEL 7-10; Start 10/18 at 12:00 Docusate Sodium (Colace) 100 mg Q12H PRN PO CONSTIPATION; Start 10/18/16 at 12: 00 Magnesium Hydroxide (Milk Of Mag) 30 ml DAILY PRN PO CONSTIPATION; Start at 12:00 Sodium Biphosphate/ Sodium Phosphate (Fleet Enema) 133 ml DAILY PRN [place] CONSTIPATION; Start 10/18/16 at 12:00 Famotidine (Pepcid Iv) 20 mg Q24H IV Last administered on 10/18/16 17:41; Admin Dose 20 MG; Start 10/18/16 at 14:00 Lorazepam (Ativan) 0.5 mg Q6H PRN IV ANXIETY Last administered on 10/18/16 13: 36; Admin Dose 0.5 MG; Start 10/18/16 at 12:00 Hydralazine HCl (Apresoline) 10 mg Q6H PRN IV ELEVATED BLOOD PRESSURE; Start at 12:00 Nitroglycerin 1 tab 1 tab Q5M PRN SL ANGINA; Start 10/18/16 at 12:00 Aztreonam 50 ml @ 100 mls/hr Q8 IVPB Last administered on 10/19/16 06:03; Admin Dose 100 MLS/HR; Start 10/18/16 at 14:30 Fentanyl (Sublimaze) 100 ml @ 2.5 mls/hr TITRATE ONCE IV Last administered on 10/18/16 16:27; Admin Dose 2.5 MLS/HR; Start 10/18/16 at 12:30; Stop at 04:29 Atorvastatin Calcium 80 mg 80 mg QHS PO Last administered on 10/18/16 22:11; Admin Dose 80 MG; Start 10/18/16 at 21:00 Piperacillin Sod/ Tazobactam Sod 100 ml @ 200 mls/hr Q8H IVPB Last administered on 10/19/16 12:57; Admin Dose 200 MLS/HR; Start 10/18/16 at 19:00 Sodium Chloride (1/2 NS) 1,000 ml @ 60 mls/hr [id number] IV Last administered on 10/18/16 22:14; Admin Dose 60 MLS/HR; Start 10/18/16 at 20:00 Lorazepam (Ativan) 2 mg Q10MIN PRN IV SEIZURES; Start 10/19/16 at 11:00 Insulin Aspart (Novolog Insulin Pen) NOVOLOG *MILD* ALGORI... Q4 SC ; Start at 13:30 Miscellaneous Information 1 ea NOTE XX ; Start 10/19/16 at 13:00 Glucose (Glutose) 15 gm Q15M PRN PO DECREASED GLUCOSE; Start 10/19/16 at 13:00 Glucose (Glutose) 22.5 gm Q15M PRN PO DECREASED GLUCOSE; Start 10/19/16 at 13: 00 Dextrose (D50w Syringe) 25 ml Q15M PRN IV DECREASED GLUCOSE; Start 10/19/16 at 13:00 Dextrose (D50w Syringe) 50 ml Q15M PRN IV DECREASED GLUCOSE; Start 10/19/16 at 13:00 Glucagon (Glucagen) 1 mg Q15M PRN IM DECREASED GLUCOSE; Start 10/19/16 at 13:00 Glucose 15 gm 15 gm Q15M PRN BUCCAL DECREASED GLUCOSE; Start 10/19/16 at 13:00 Levetiracetam (Keppra 500 Mg/ 100ml (Pmx)) 100 ml @ 400 mls/hr Q12 IVPB ; Start 10/19/16 at 13:30 BENITO BOOTH Oct 19, 2016 13:34
[2016-10-19] MEDS: INSULIN ASPART [NOVOLOG] 3 ML PEN SC SCH ×3 (13:48→21:21)
[2016-10-19] MEDS: LEVETIRACETAM 500 MG (PMX) 100 ML IVPB SCH ×2 (13:48→21:14)
--- NOTE | 2016-10-19 14:41 | CONS ---
Date/Time of Note Date/Time of Note DATE: 10/19/16 TIME: 14:40 Consultation Date/Type/Reason Admit Date/Time Date of Consultation: Oct 19, 2016 Type of Consultation: ID Reason for Consultation Positive bcs and Abic management Past Medical History Medical History: other (unknown) Past Surgical History Past Surgical Hx: other Social History Smoking Status: Never smoker Exam/Review of Systems Vital Signs Vitals Vital Signs Date Time Temp Pulse Resp B/P Pulse Ox O2 Delivery O2 Flow Rate FiO2 10/19/16 12:00 54 10/19/16 10:00 16 100 10/19/16 08:00 98.0 109/56 96 Mechanical Ventilator 10.0 Results Result Diagram: 10/19/16 0505 10/19/16 0505 Results 24 hrs Laboratory Tests Test 10/18/16 16:00 10/18/16 17:00 10/19/16 05:05 10/19/16 07:00 Lactic Acid Level 5.9 *H Sodium Level 144 143 Potassium Level 6.1 *H 5.6 H Chloride Level 108 107 Carbon Dioxide Level 19 L 20 L Anion Gap 23 H 22 H Blood Urea Nitrogen 36 H 45 H Creatinine 2.36 H 2.68 H Glucose Level 227 H 215 Calcium Level 7.9 L 7.8 L White Blood Count 11.5 #H Red Blood Count 3.95 L Hemoglobin 11.7 L Hematocrit 36.1 L Mean Corpuscular Volume 91.4 Mean Corpuscular Hemoglobin 29.6 Mean Corpuscular Hemoglobin Concent 32.4 Red Cell Distribution Width 13.5 Platelet Count 109 L Mean Platelet Volume 8.9 Neutrophils % 83.0 H Lymphocytes % 2.0 L Monocytes % 6.0 Eosinophils % Basophils % Nucleated Red Blood Cells % 0.0 Neutrophils # 9.5 H Band Neutrophils # 9.5 H Lymphocytes # 0.2 L Monocytes # 0.7 Eosinophils # Basophils # Nucleated Red Blood Cells # Hemoglobin A1c 6.9 H Phosphorus Level 5.9 H Magnesium Level 1.9 Triglycerides Level 102 Cholesterol Level 105 LDL Cholesterol, Calculated 64 HDL Cholesterol 21 L Cholesterol/HDL Ratio 5.0 Thyroid Stimulating Hormone (TSH) 2.530 Blood Gas Specimen Source Blood arterial Arterial Blood Date Drawn 10/19/2016 11:55:20 AM Arterial Blood pH (Temp corrected) 7.337 L Arterial Blood pCO2 (Temp correct) 32.0 L Arterial Blood pO2 (Temp corrected) 127.6 H Arterial Blood HCO3 16.8 L Arterial Blood Base Excess -7.9 L Arterial Blood Oxygen Saturation 98.2 Perry Test ACCEPTAB Arterial Blood Gas Puncture Site Right Radial Arterial Blood Carboxyhemoglobin 0.3 Arterial Blood Methemoglobin 0.4 Blood Gas A-a O2 Differential 553.4 H Oxyhemoglobin Percent 97.5 Total Hemoglobin 13.6 Blood Gas Temperature 37.0 Blood Gas Respiration Rate 14.0 Blood Gas Actual Respiration Rate 16 Blood Gas Modality VENT - AC FiO2 100.0 Blood Gas Tidal Volume 500.0 Blood Gas Low PEEP Setting 5.0 Blood Gas Notified Whom CW Blood Gas Notified Time 10/19/2016 12:00:43 PM Test 10/19/16 13:36 Bedside Glucose 196 Medications Medications Current Medications Ondansetron HCl (Zofran Inj) 4 mg Q6H PRN IV NAUSEA AND/OR VOMITING; Start at 12:00 Acetaminophen (Tylenol Tab) 650 mg Q6H PRN PO PAIN LEVEL 1-3 OR FEVER; Start at 12:00 Acetaminophen/ Hydrocodone Bitart ([place] (5/325)) 1 tab Q6H PRN PO MODERATE PAIN LEVEL 4-6; Start 10/18/16 at 12:00 Morphine Sulfate (morphine) 2 mg Q4H PRN IV SEVERE PAIN LEVEL 7-10; Start 10/18 at 12:00 Docusate Sodium (Colace) 100 mg Q12H PRN PO CONSTIPATION; Start 10/18/16 at 12: 00 Magnesium Hydroxide (Milk Of Mag) 30 ml DAILY PRN PO CONSTIPATION; Start at 12:00 Sodium Biphosphate/ Sodium Phosphate (Fleet Enema) 133 ml DAILY PRN [place] CONSTIPATION; Start 10/18/16 at 12:00 Famotidine (Pepcid Iv) 20 mg Q24H IV Last administered on 10/18/16 17:41; Admin Dose 20 MG; Start 10/18/16 at 14:00 Lorazepam (Ativan) 0.5 mg Q6H PRN IV ANXIETY Last administered on 10/18/16 13: 36; Admin Dose 0.5 MG; Start 10/18/16 at 12:00 Hydralazine HCl (Apresoline) 10 mg Q6H PRN IV ELEVATED BLOOD PRESSURE; Start at 12:00 Nitroglycerin 1 tab 1 tab Q5M PRN SL ANGINA; Start 10/18/16 at 12:00 Aztreonam 50 ml @ 100 mls/hr Q8 IVPB Last administered on 10/19/16 06:03; Admin Dose 100 MLS/HR; Start 10/18/16 at 14:30 Fentanyl (Sublimaze) 100 ml @ 2.5 mls/hr TITRATE ONCE IV Last administered on 10/18/16 16:27; Admin Dose 2.5 MLS/HR; Start 10/18/16 at 12:30; Stop at 04:29 Atorvastatin Calcium 80 mg 80 mg QHS PO Last administered on 10/18/16 22:11; Admin Dose 80 MG; Start 10/18/16 at 21:00 Piperacillin Sod/ Tazobactam Sod 100 ml @ 200 mls/hr Q8H IVPB Last administered on 10/19/16 12:57; Admin Dose 200 MLS/HR; Start 10/18/16 at 19:00 Sodium Chloride (1/2 NS) 1,000 ml @ 60 mls/hr [id number] IV Last administered on 10/18/16 22:14; Admin Dose 60 MLS/HR; Start 10/18/16 at 20:00 Lorazepam (Ativan) 2 mg Q10MIN PRN IV SEIZURES; Start 10/19/16 at 11:00 Insulin Aspart (Novolog Insulin Pen) NOVOLOG *MILD* ALGORI... Q4 SC Last administered on 10/19/16 13:48; Admin Dose 2 UNIT; Start 10/19/16 at 13:30 Miscellaneous Information 1 ea NOTE XX ; Start 10/19/16 at 13:00 Glucose (Glutose) 15 gm Q15M PRN PO DECREASED GLUCOSE; Start 10/19/16 at 13:00 Glucose (Glutose) 22.5 gm Q15M PRN PO DECREASED GLUCOSE; Start 10/19/16 at 13: 00 Dextrose (D50w Syringe) 25 ml Q15M PRN IV DECREASED GLUCOSE; Start 10/19/16 at 13:00 Dextrose (D50w Syringe) 50 ml Q15M PRN IV DECREASED GLUCOSE; Start 10/19/16 at 13:00 Glucagon (Glucagen) 1 mg Q15M PRN IM DECREASED GLUCOSE; Start 10/19/16 at 13:00 Glucose 15 gm 15 gm Q15M PRN BUCCAL DECREASED GLUCOSE; Start 10/19/16 at 13:00 Levetiracetam (Keppra 500 Mg/ 100ml (Pmx)) 100 ml @ 400 mls/hr Q12 IVPB Last administered on 10/19/16t 13:48; Admin Dose 400 MLS/HR; Start 10/19/16 at 13:30 JOSHUA SAUCEDA MD Oct 19, 2016 14:41
[2016-10-19] MEDS ORDERED: VANCOMYCIN IV PER PHARMACY XX SCH (15:00)
[2016-10-19] MEDS ORDERED: VANCOMYCIN 500MG/NS (PMX) 100 ML IVPB SCH (16:30)
[2016-10-19] MEDS: SOD CHLORIDE 0.45% 1,000 ML IV SCH (17:10)
--- NOTE | 2016-10-19 17:23 | CONS ---
Date/Time of Note Date/Time of Note DATE: 10/19/16 TIME: 17:15 Assessment/Plan Assessment/Plan Chief Complaint/Hosp Course 81 year old male with AAA admitted with PEA arrest with severe cardiomyopathy and extensive bilateral cardioembolic strokes and hypoxic injury and post anoxic seizures. Recommendations: -continue Keppra 500 mg q12h ppx -EEG to be read -unfortunately he is at too high risk for hemorrhagic conversion of infarctions to start AC may use antiplatelet if cleared -continue statin, maintain normotensive blood pressure -overall based on the extent on injury seen on the MRI and his comorbid medical issues i expect a very poor prognosis for a meaningful neurologic recovery Problems: Consultation Date/Type/Reason Admit Date/Time 10/17/16 Date of Consultation: Oct 19, 2016 Type of Consultation: Neurology Reason for Consultation cardioembolic CVA Referring Provider: JAZ BRISCOE Hx of Present Illness 81 year old male with history of AAA admitted after he was found collapsed on the toilet unclear time down found to be in PEA arrest requiring intubation and mechanical ventilation given epinephrine with ROSC not a candidate for hypothermia protocol with severe lactic acidosis on admission. CTH showed blurred rico/white differentiation and MRI Brain pursued which showed extensive infarcts in the left frontal, parietal temporal and occipital lobe involvement of the left insula left thalamus and left parahippocampal gyrus, acute ischemic right occipital and bilateral cerebellar hemispheres. ECHO: EF 25% with akinesis of apex and anterior wall. Due to high risk of intracranial hemorrhage from extensive infarction and hypoxic injury anticoagulation has been held. He remains intubated unresponsive, there was also concern for seizures he was started on Keppra 500 mg q12h and EEG was completed today. Subjective hx not possible: pt non-verbal, pt critical Past Medical History Medical History: other (unknown) Past Surgical History Past Surgical Hx: other Social History Smoking Status: Unknown if ever smoked Exam/Review of Systems Vital Signs Vitals Vital Signs Date Time Temp Pulse Resp B/P Pulse Ox O2 Delivery O2 Flow Rate FiO2 10/19/16 15:40 61 16 60 10/19/16 08:00 98.0 109/56 96 Mechanical Ventilator 10.0 Exam intubated unresponsive unable to open eyes to verbal stimuli no grimaces to noxious CN: absent corneals pupils are 1 mm and NR, gag is present after deep suction very weak gag, Dolls is absent Motor: no movement to noxious stimuli applied Sensory no sensation to noxious Results Result Diagram: 10/19/16 0505 10/19/16 0505 Results 24 hrs Laboratory Tests Test 10/19/16 05:05 10/19/16 07:00 10/19/16 13:36 White Blood Count 11.5 #H Red Blood Count 3.95 L Hemoglobin 11.7 L Hematocrit 36.1 L Mean Corpuscular Volume 91.4 Mean Corpuscular Hemoglobin 29.6 Mean Corpuscular Hemoglobin Concent 32.4 Red Cell Distribution Width 13.5 Platelet Count 109 L Mean Platelet Volume 8.9 Neutrophils % 83.0 H Lymphocytes % 2.0 L Monocytes % 6.0 Eosinophils % Basophils % Nucleated Red Blood Cells % 0.0 Neutrophils # 9.5 H Band Neutrophils # 9.5 H Lymphocytes # 0.2 L Monocytes # 0.7 Eosinophils # Basophils # Nucleated Red Blood Cells # Sodium Level 143 Potassium Level 5.6 H Chloride Level 107 Carbon Dioxide Level 20 L Anion Gap 22 H Blood Urea Nitrogen 45 H Creatinine 2.68 H Glucose Level 215 Hemoglobin A1c 6.9 H Calcium Level 7.8 L Phosphorus Level 5.9 H Magnesium Level 1.9 Triglycerides Level 102 Cholesterol Level 105 LDL Cholesterol, Calculated 64 HDL Cholesterol 21 L Cholesterol/HDL Ratio 5.0 Thyroid Stimulating Hormone (TSH) 2.530 Blood Gas Specimen Source Blood arterial Arterial Blood Date Drawn 10/19/2016 11:55:20 AM Arterial Blood pH (Temp corrected) 7.337 L Arterial Blood pCO2 (Temp correct) 32.0 L Arterial Blood pO2 (Temp corrected) 127.6 H Arterial Blood HCO3 16.8 L Arterial Blood Base Excess -7.9 L Arterial Blood Oxygen Saturation 98.2 Perry Test ACCEPTAB Arterial Blood Gas Puncture Site Right Radial Arterial Blood Carboxyhemoglobin 0.3 Arterial Blood Methemoglobin 0.4 Blood Gas A-a O2 Differential 553.4 H Oxyhemoglobin Percent 97.5 Total Hemoglobin 13.6 Blood Gas Temperature 37.0 Blood Gas Respiration Rate 14.0 Blood Gas Actual Respiration Rate 16 Blood Gas Modality VENT - AC FiO2 100.0 Blood Gas Tidal Volume 500.0 Blood Gas Low PEEP Setting 5.0 Blood Gas Notified Whom CW Blood Gas Notified Time 10/19/2016 12:00:43 PM Bedside Glucose 196 Medications Medications Current Medications Ondansetron HCl (Zofran Inj) 4 mg Q6H PRN IV NAUSEA AND/OR VOMITING; Start at 12:00 Acetaminophen (Tylenol Tab) 650 mg Q6H PRN PO PAIN LEVEL 1-3 OR FEVER; Start at 12:00 Acetaminophen/ Hydrocodone Bitart ([place] (5/325)) 1 tab Q6H PRN PO MODERATE PAIN LEVEL 4-6; Start 10/18/16 at 12:00 Morphine Sulfate (morphine) 2 mg Q4H PRN IV SEVERE PAIN LEVEL 7-10; Start 10/18 at 12:00 Docusate Sodium (Colace) 100 mg Q12H PRN PO CONSTIPATION; Start 10/18/16 at 12: 00 Magnesium Hydroxide (Milk Of Mag) 30 ml DAILY PRN PO CONSTIPATION; Start at 12:00 Sodium Biphosphate/ Sodium Phosphate (Fleet Enema) 133 ml DAILY PRN [place] CONSTIPATION; Start 10/18/16 at 12:00 Famotidine (Pepcid Iv) 20 mg Q24H IV Last administered on 10/18/16 17:41; Admin Dose 20 MG; Start 10/18/16 at 14:00 Lorazepam (Ativan) 0.5 mg Q6H PRN IV ANXIETY Last administered on 10/18/16 13: 36; Admin Dose 0.5 MG; Start 10/18/16 at 12:00 Hydralazine HCl (Apresoline) 10 mg Q6H PRN IV ELEVATED BLOOD PRESSURE; Start at 12:00 Nitroglycerin 1 tab 1 tab Q5M PRN SL ANGINA; Start 10/18/16 at 12:00 Fentanyl (Sublimaze) 100 ml @ 2.5 mls/hr TITRATE ONCE IV Last administered on 10/18/16 16:27; Admin Dose 2.5 MLS/HR; Start 10/18/16 at 12:30; Stop at 04:29 Atorvastatin Calcium 80 mg 80 mg QHS PO Last administered on 10/18/16 22:11; Admin Dose 80 MG; Start 10/18/16 at 21:00 Piperacillin Sod/ Tazobactam Sod 100 ml @ 200 mls/hr Q8H IVPB Last administered on 10/19/16 12:57; Admin Dose 200 MLS/HR; Start 10/18/16 at 19:00 Sodium Chloride (1/2 NS) 1,000 ml @ 60 mls/hr [id number] IV Last administered on 10/19/16 17:10; Admin Dose 60 MLS/HR; Start 10/18/16 at 20:00 Lorazepam (Ativan) 2 mg Q10MIN PRN IV SEIZURES; Start 10/19/16 at 11:00 Insulin Aspart (Novolog Insulin Pen) NOVOLOG *MILD* ALGORI... Q4 SC Last administered on 10/19/16 13:48; Admin Dose 2 UNIT; Start 10/19/16 at 13:30 Miscellaneous Information 1 ea NOTE XX ; Start 10/19/16 at 13:00 Glucose (Glutose) 15 gm Q15M PRN PO DECREASED GLUCOSE; Start 10/19/16 at 13:00 Glucose (Glutose) 22.5 gm Q15M PRN PO DECREASED GLUCOSE; Start 10/19/16 at 13: 00 Dextrose (D50w Syringe) 25 ml Q15M PRN IV DECREASED GLUCOSE; Start 10/19/16 at 13:00 Dextrose (D50w Syringe) 50 ml Q15M PRN IV DECREASED GLUCOSE; Start 10/19/16 at 13:00 Glucagon (Glucagen) 1 mg Q15M PRN IM DECREASED GLUCOSE; Start 10/19/16 at 13:00 Glucose 15 gm 15 gm Q15M PRN BUCCAL DECREASED GLUCOSE; Start 10/19/16 at 13:00 Levetiracetam 100 ml @ 400 mls/hr Q12 IVPB Last administered on 10/19/16 13: 48; Admin Dose 400 MLS/HR; Start 10/19/16 at 13:30 Vancomycin HCl 100 ml @ 100 mls/hr ONCE IVPB Last administered on 10/19/16 16 :44; Admin Dose 100 MLS/HR; Start 10/19/16 at 16:30; Stop 10/19/16 at 19:00 Vancomycin HCl/ Sodium Chloride (Vancocin/NS) 250 ml @ 83.333 mls/ hr Q48H IVPB ; Start 10/21/16 at 09:00 RONNIE ZELAYA MD Oct 19, 2016 17:23
--- NOTE | 2016-10-19 17:29 | CONS ---
Date/Time of Note Date/Time of Note DATE: 10/19/16 TIME: 17:23 Assessment/Plan Assessment/Plan Chief Complaint/Hosp Course PEA/Asystole cardiac arrest: likely due to acute stroke Acute stroke: involving multiple territories, suspect cardioembolic though no obvious thrombus noted on echocardiogram Cardiomyopathy, LVEF 25%: suspect ischemic given segmental akinesis and hypokinesis, coronary angiography if any meaningful neurologic recovery Acute on chronic systolic heart failure Acute respiratory failure: intubated due to arrest Acute renal failure: from above AAA: [address] but no e/o rupture though noncontrast study, will eventually need vascular surgery evaluation if any meaningful neurologic recovery Problems: Consultation Date/Type/Reason Admit Date/Time Oct 19, 2016 at 09:59 Initial Consult Date 10/19/16 Type of Consultation: Cardiology 24 HR Interval Summary Free Text/Dictation Brain MRI shows acute stroke in multiple territories. Echocardiogram shows LVEF 25%. Remains intubated. Hemodynamically stable. Detailed Summary Additional Comments Unable to obtain review of systems, patient is intubated. Exam/Review of Systems Vital Signs Vitals Vital Signs Date Time Temp Pulse Resp B/P Pulse Ox O2 Delivery O2 Flow Rate FiO2 10/19/16 15:40 61 16 60 10/19/16 08:00 98.0 109/56 96 Mechanical Ventilator 10.0 Exam Constitutional: No alert Head: atraumatic, normocephalic Neck: No jvd (difficult to examine ) Respiratory: diminished breath sounds, No clear to auscultation Cardiovascular: other (slightly cool extremities ), systolic murmur (2/6 FIDE), No edema, No regular rate and rhythm (bradycardic 50s) Gastrointestinal: soft, No distended Neurological: No nl mental status, No nl speech Skin: rash or lesions Results Result Diagram: 10/19/16 0505 10/19/16 0505 Results 24 hrs Laboratory Tests Test 10/19/16 05:05 10/19/16 07:00 10/19/16 13:36 White Blood Count 11.5 #H Red Blood Count 3.95 L Hemoglobin 11.7 L Hematocrit 36.1 L Mean Corpuscular Volume 91.4 Mean Corpuscular Hemoglobin 29.6 Mean Corpuscular Hemoglobin Concent 32.4 Red Cell Distribution Width 13.5 Platelet Count 109 L Mean Platelet Volume 8.9 Neutrophils % 83.0 H Lymphocytes % 2.0 L Monocytes % 6.0 Eosinophils % Basophils % Nucleated Red Blood Cells % 0.0 Neutrophils # 9.5 H Band Neutrophils # 9.5 H Lymphocytes # 0.2 L Monocytes # 0.7 Eosinophils # Basophils # Nucleated Red Blood Cells # Sodium Level 143 Potassium Level 5.6 H Chloride Level 107 Carbon Dioxide Level 20 L Anion Gap 22 H Blood Urea Nitrogen 45 H Creatinine 2.68 H Glucose Level 215 Hemoglobin A1c 6.9 H Calcium Level 7.8 L Phosphorus Level 5.9 H Magnesium Level 1.9 Triglycerides Level 102 Cholesterol Level 105 LDL Cholesterol, Calculated 64 HDL Cholesterol 21 L Cholesterol/HDL Ratio 5.0 Thyroid Stimulating Hormone (TSH) 2.530 Blood Gas Specimen Source Blood arterial Arterial Blood Date Drawn 10/19/2016 11:55:20 AM Arterial Blood pH (Temp corrected) 7.337 L Arterial Blood pCO2 (Temp correct) 32.0 L Arterial Blood pO2 (Temp corrected) 127.6 H Arterial Blood HCO3 16.8 L Arterial Blood Base Excess -7.9 L Arterial Blood Oxygen Saturation 98.2 Perry Test ACCEPTAB Arterial Blood Gas Puncture Site Right Radial Arterial Blood Carboxyhemoglobin 0.3 Arterial Blood Methemoglobin 0.4 Blood Gas A-a O2 Differential 553.4 H Oxyhemoglobin Percent 97.5 Total Hemoglobin 13.6 Blood Gas Temperature 37.0 Blood Gas Respiration Rate 14.0 Blood Gas Actual Respiration Rate 16 Blood Gas Modality VENT - AC FiO2 100.0 Blood Gas Tidal Volume 500.0 Blood Gas Low PEEP Setting 5.0 Blood Gas Notified Whom CW Blood Gas Notified Time 10/19/2016 12:00:43 PM Bedside Glucose 196 Medications Medications Current Medications Ondansetron HCl (Zofran Inj) 4 mg Q6H PRN IV NAUSEA AND/OR VOMITING; Start at 12:00 Acetaminophen (Tylenol Tab) 650 mg Q6H PRN PO PAIN LEVEL 1-3 OR FEVER; Start at 12:00 Acetaminophen/ Hydrocodone Bitart ([place] (5/325)) 1 tab Q6H PRN PO MODERATE PAIN LEVEL 4-6; Start 10/18/16 at 12:00 Morphine Sulfate (morphine) 2 mg Q4H PRN IV SEVERE PAIN LEVEL 7-10; Start 10/18 at 12:00 Docusate Sodium (Colace) 100 mg Q12H PRN PO CONSTIPATION; Start 10/18/16 at 12: 00 Magnesium Hydroxide (Milk Of Mag) 30 ml DAILY PRN PO CONSTIPATION; Start at 12:00 Sodium Biphosphate/ Sodium Phosphate (Fleet Enema) 133 ml DAILY PRN MA CONSTIPATION; Start 10/18/16 at 12:00 Famotidine (Pepcid Iv) 20 mg Q24H IV Last administered on 10/18/16 17:41; Admin Dose 20 MG; Start 10/18/16 at 14:00 Lorazepam (Ativan) 0.5 mg Q6H PRN IV ANXIETY Last administered on 10/18/16 13: 36; Admin Dose 0.5 MG; Start 10/18/16 at 12:00 Hydralazine HCl (Apresoline) 10 mg Q6H PRN IV ELEVATED BLOOD PRESSURE; Start at 12:00 Nitroglycerin 1 tab 1 tab Q5M PRN SL ANGINA; Start 10/18/16 at 12:00 Fentanyl (Sublimaze) 100 ml @ 2.5 mls/hr TITRATE ONCE IV Last administered on 10/18/16 16:27; Admin Dose 2.5 MLS/HR; Start 10/18/16 at 12:30; Stop at 04:29 Atorvastatin Calcium 80 mg 80 mg QHS PO Last administered on 10/18/16 22:11; Admin Dose 80 MG; Start 10/18/16 at 21:00 Piperacillin Sod/ Tazobactam Sod 100 ml @ 200 mls/hr Q8H IVPB Last administered on 10/19/16 12:57; Admin Dose 200 MLS/HR; Start 10/18/16 at 19:00 Sodium Chloride (1/2 NS) 1,000 ml @ 60 mls/hr [id number] IV Last administered on 10/19/16 17:10; Admin Dose 60 MLS/HR; Start 10/18/16 at 20:00 Lorazepam (Ativan) 2 mg Q10MIN PRN IV SEIZURES; Start 10/19/16 at 11:00 Insulin Aspart (Novolog Insulin Pen) NOVOLOG *MILD* ALGORI... Q4 SC Last administered on 10/19/16 13:48; Admin Dose 2 UNIT; Start 10/19/16 at 13:30 Miscellaneous Information 1 ea NOTE XX ; Start 10/19/16 at 13:00 Glucose (Glutose) 15 gm Q15M PRN PO DECREASED GLUCOSE; Start 10/19/16 at 13:00 Glucose (Glutose) 22.5 gm Q15M PRN PO DECREASED GLUCOSE; Start 10/19/16 at 13: 00 Dextrose (D50w Syringe) 25 ml Q15M PRN IV DECREASED GLUCOSE; Start 10/19/16 at 13:00 Dextrose (D50w Syringe) 50 ml Q15M PRN IV DECREASED GLUCOSE; Start 10/19/16 at 13:00 Glucagon (Glucagen) 1 mg Q15M PRN IM DECREASED GLUCOSE; Start 10/19/16 at 13:00 Glucose 15 gm 15 gm Q15M PRN BUCCAL DECREASED GLUCOSE; Start 10/19/16 at 13:00 Levetiracetam 100 ml @ 400 mls/hr Q12 IVPB Last administered on 10/19/16 13: 48; Admin Dose 400 MLS/HR; Start 10/19/16 at 13:30 Vancomycin HCl 100 ml @ 100 mls/hr ONCE IVPB Last administered on 10/19/16 16 :44; Admin Dose 100 MLS/HR; Start 10/19/16 at 16:30; Stop 10/19/16 at 19:00 Vancomycin HCl/ Sodium Chloride (Vancocin/NS) 250 ml @ 83.333 mls/ hr Q48H IVPB ; Start 10/21/16 at 09:00 SWETHA STEWART MD Oct 19, 2016 17:29
--- NOTE | 2016-10-19 19:01 | CONS ---
Date/Time of Note Date/Time of Note DATE: 10/19/16 TIME: 18:48 Assessment/Plan Assessment/Plan Chief Complaint/Hosp Course Patient does have hematuria as well as rectal bleeding he has acute renal failure and that is probably related to his cardiac arrest in addition to chronic kidney disease. He has horseshoe kidney and the kidneys appeared to be small Problems: Additional Assessment/Plan From a urological standpoint no just keep the Tovar catheter in. On the ultrasound as well as on the CT scan there is no urinary retention the bladder is decompressed and the catheter is in good position. As far as a hematuria we will just have to watch it. He does have rectal bleeding and may need a GI consultation Consultation Date/Type/Reason Admit Date/Time Oct 19, 2016 at 09:59 Date of Consultation: Oct 19, 2016 Type of Consultation: Urology Reason for Consultation Gross hematuria Hx of Present Illness 81-year-old male who had cardiac arrest at home and was brought to the emergency room by the paramedics. He is now in the intensive care unit intubated and has an indwelling Tovar catheter. It was noted that the urine is bloody therefore a urological consultation was requested. No history is obtainable from the patient himself but I reviewed his medical record the notes and the consultations of the different physicians on the case. Subjective hx not possible: pt critical Respiratory: other (Patient is on the ventilator) Gastrointestinal: other (The nurse was changing his bedding and I held her and he does have bleeding from the rectum) Genitourinary: hematuria Skin: other (Moetelled skin mostly in the lower extremities) Past Medical History Medical History: other (unknown) Past Surgical History Past Surgical Hx: other (Unknown) Social History Smoking Status: Unknown if ever smoked Exam/Review of Systems Vital Signs Vitals Vital Signs Date Time Temp Pulse Resp B/P Pulse Ox O2 Delivery O2 Flow Rate FiO2 10/19/16 17:30 65 25 108/68 100 10/19/16 17:20 60 10/19/16 17:00 Mechanical Ventilator 10/19/16 16:00 96.1 10/19/16 08:00 10.0 Exam Patient is on ventilator Cardiovascular: other (Patient does have abdominal aortic aneurysm that measured about 6 cm) Gastrointestinal: other (The abdomen is distended and tense, patient does have rectal bleed) Genitourinary - Male: other (Indwelling Tovar catheter was very little urine output and the urine is bloody patient also does have a right hydrocele, the prostate is soft and mildly enlarged) Extremities: other (Both lower extremities are cold) Results Result Diagram: 10/19/16 0505 10/19/16 0505 Results 24 hrs Laboratory Tests Test 10/19/16 05:05 10/19/16 07:00 10/19/16 13:36 10/19/16 17:56 White Blood Count 11.5 #H Red Blood Count 3.95 L Hemoglobin 11.7 L Hematocrit 36.1 L Mean Corpuscular Volume 91.4 Mean Corpuscular Hemoglobin 29.6 Mean Corpuscular Hemoglobin Concent 32.4 Red Cell Distribution Width 13.5 Platelet Count 109 L Mean Platelet Volume 8.9 Neutrophils % 83.0 H Lymphocytes % 2.0 L Monocytes % 6.0 Eosinophils % Basophils % Nucleated Red Blood Cells % 0.0 Neutrophils # 9.5 H Band Neutrophils # 9.5 H Lymphocytes # 0.2 L Monocytes # 0.7 Eosinophils # Basophils # Nucleated Red Blood Cells # Sodium Level 143 Potassium Level 5.6 H Chloride Level 107 Carbon Dioxide Level 20 L Anion Gap 22 H Blood Urea Nitrogen 45 H Creatinine 2.68 H Glucose Level 215 Hemoglobin A1c 6.9 H Calcium Level 7.8 L Phosphorus Level 5.9 H Magnesium Level 1.9 Triglycerides Level 102 Cholesterol Level 105 LDL Cholesterol, Calculated 64 HDL Cholesterol 21 L Cholesterol/HDL Ratio 5.0 Thyroid Stimulating Hormone (TSH) 2.530 Blood Gas Specimen Source Blood arterial Arterial Blood Date Drawn 10/19/2016 11:55:20 AM Arterial Blood pH (Temp corrected) 7.337 L Arterial Blood pCO2 (Temp correct) 32.0 L Arterial Blood pO2 (Temp corrected) 127.6 H Arterial Blood HCO3 16.8 L Arterial Blood Base Excess -7.9 L Arterial Blood Oxygen Saturation 98.2 Perry Test ACCEPTAB Arterial Blood Gas Puncture Site Right Radial Arterial Blood Carboxyhemoglobin 0.3 Arterial Blood Methemoglobin 0.4 Blood Gas A-a O2 Differential 553.4 H Oxyhemoglobin Percent 97.5 Total Hemoglobin 13.6 Blood Gas Temperature 37.0 Blood Gas Respiration Rate 14.0 Blood Gas Actual Respiration Rate 16 Blood Gas Modality VENT - AC FiO2 100.0 Blood Gas Tidal Volume 500.0 Blood Gas Low PEEP Setting 5.0 Blood Gas Notified Whom CW Blood Gas Notified Time 10/19/2016 12:00:43 PM Bedside Glucose 196 166 Medications Medications Current Medications Ondansetron HCl (Zofran Inj) 4 mg Q6H PRN IV NAUSEA AND/OR VOMITING; Start at 12:00 Acetaminophen (Tylenol Tab) 650 mg Q6H PRN PO PAIN LEVEL 1-3 OR FEVER; Start at 12:00 Acetaminophen/ Hydrocodone Bitart ([place] (5/325)) 1 tab Q6H PRN PO MODERATE PAIN LEVEL 4-6; Start 10/18/16 at 12:00 Morphine Sulfate (morphine) 2 mg Q4H PRN IV SEVERE PAIN LEVEL 7-10; Start 10/18 at 12:00 Docusate Sodium (Colace) 100 mg Q12H PRN PO CONSTIPATION; Start 10/18/16 at 12: 00 Magnesium Hydroxide (Milk Of Mag) 30 ml DAILY PRN PO CONSTIPATION; Start at 12:00 Sodium Biphosphate/ Sodium Phosphate (Fleet Enema) 133 ml DAILY PRN OR CONSTIPATION; Start 10/18/16 at 12:00 Famotidine (Pepcid Iv) 20 mg Q24H IV Last administered on 10/18/16 17:41; Admin Dose 20 MG; Start 10/18/16 at 14:00 Lorazepam (Ativan) 0.5 mg Q6H PRN IV ANXIETY Last administered on 10/18/16 13: 36; Admin Dose 0.5 MG; Start 10/18/16 at 12:00 Hydralazine HCl (Apresoline) 10 mg Q6H PRN IV ELEVATED BLOOD PRESSURE; Start at 12:00 Nitroglycerin 1 tab 1 tab Q5M PRN SL ANGINA; Start 10/18/16 at 12:00 Fentanyl (Sublimaze) 100 ml @ 2.5 mls/hr TITRATE ONCE IV Last administered on 10/18/16 16:27; Admin Dose 2.5 MLS/HR; Start 10/18/16 at 12:30; Stop at 04:29 Atorvastatin Calcium 80 mg 80 mg QHS PO Last administered on 10/18/16 22:11; Admin Dose 80 MG; Start 10/18/16 at 21:00 Piperacillin Sod/ Tazobactam Sod 100 ml @ 200 mls/hr Q8H IVPB Last administered on 10/19/16 12:57; Admin Dose 200 MLS/HR; Start 10/18/16 at 19:00 Sodium Chloride (1/2 NS) 1,000 ml @ 60 mls/hr [id number] IV Last administered on 10/19/16 17:10; Admin Dose 60 MLS/HR; Start 10/18/16 at 20:00 Lorazepam (Ativan) 2 mg Q10MIN PRN IV SEIZURES; Start 10/19/16 at 11:00 Insulin Aspart (Novolog Insulin Pen) NOVOLOG *MILD* ALGORI... Q4 SC Last administered on 10/19/16 17:58; Admin Dose 1 UNIT; Start 10/19/16 at 13:30 Miscellaneous Information 1 ea NOTE XX ; Start 10/19/16 at 13:00 Glucose (Glutose) 15 gm Q15M PRN PO DECREASED GLUCOSE; Start 10/19/16 at 13:00 Glucose (Glutose) 22.5 gm Q15M PRN PO DECREASED GLUCOSE; Start 10/19/16 at 13: 00 Dextrose (D50w Syringe) 25 ml Q15M PRN IV DECREASED GLUCOSE; Start 10/19/16 at 13:00 Dextrose (D50w Syringe) 50 ml Q15M PRN IV DECREASED GLUCOSE; Start 10/19/16 at 13:00 Glucagon (Glucagen) 1 mg Q15M PRN IM DECREASED GLUCOSE; Start 10/19/16 at 13:00 Glucose 15 gm 15 gm Q15M PRN BUCCAL DECREASED GLUCOSE; Start 10/19/16 at 13:00 Levetiracetam 100 ml @ 400 mls/hr Q12 IVPB Last administered on 10/19/16 13: 48; Admin Dose 400 MLS/HR; Start 10/19/16 at 13:30 Vancomycin HCl 100 ml @ 100 mls/hr ONCE IVPB Last administered on 10/19/16 16 :44; Admin Dose 100 MLS/HR; Start 10/19/16 at 16:30; Stop 10/19/16 at 19:00 Vancomycin HCl/ Sodium Chloride (Vancocin/NS) 250 ml @ 83.333 mls/ hr Q48H IVPB ; Start 10/21/16 at 09:00 ROGER CESAR MD Oct 19, 2016 19:00
--- NOTE | 2016-10-19 19:44 | RADRPT ---
PROCEDURE: XR Abdomen. CLINICAL INDICATION: Abdominal pain. History of kidney stones. TECHNIQUE: AP supine abdomen x-ray. COMPARISON: CT scan of the abdomen and pelvis dated 10/18/2016 which demonstrated a horseshoe kidn ey with small nonobstructing left renal calculi. FINDINGS: The bowel gas pattern is normal with no evidence of obstruction. A nasogastric tube is present with the tip in the stomach. A Tovar catheter is present in the bladder. There are small calcifications measuring 0.3 cm and 0.5 cm overlying the left kidney as seen on prio r CT scan. There are no other abnormal calcifications overlying the urinary tracts. There are mild degenerative changes of the spine. IMPRESSION: 1. Nasogastric tube tip in the stomach. 2. Tovar catheter in the bladder. 3. Small calcifications overlying the left kidney as seen on prior CT scan. 4. Mild degenerative changes of the spine. RPTAT: QQ .Ruben Hilario MD, MD Date Time Electronically viewed and signed by .Ruben Hilario MD, on 10/19/2016 19:44 .R/
[2016-10-19] MEDS: ATORVASTATIN 80 MG TAB PO SCH (21:14)
[2016-10-19] MEDS ORDERED: SOD CHLORIDE 0.9% 250 ML IV ONE (21:30)
[2016-10-19] MEDS ORDERED: NA BICARBONATE 8.4% 50 ML SYG IV ONE (22:00)
[2016-10-20] VITALS (25 sets, daily range): BP systolic 90–149; BP diastolic 55–128; PULSE 75–95; RESP 16–27
[2016-10-20] MEDS: INSULIN ASPART [NOVOLOG] 3 ML PEN SC SCH ×3 (00:46→09:00)
[2016-10-20] MEDS: PIPER-TAZO 3.375 GM IV (PMX) 100 ML IVPB SCH ×2 (03:06→11:44)
[2016-10-20] MEDS ORDERED: SOD CHLORIDE 0.9% 250 ML IV ONE (03:30)
--- NOTE | 2016-10-20 05:03 | CONS ---
DATE OF ADMISSION: 10/19/2016 DATE OF CONSULTATION: 10/18/2016 Vascular Surgery Consultation Dear Doctors: Mr. Perry is an 81-year-old gentleman who presented to [facility] secondary to having an episode of cardiac arrest in which he was resuscitated and brought into the ER intubated. During the time of his evaluation it was identified the patient has a complicated juxtarenal abdominal aortic aneurysm that involves a horseshoe kidney and a past medical history of chronic kidney disease stage 2 to 3. At the moment the patient is intubated and sedated. The patient is unresponsive and unable to ascertain any further information. It is unclear how long the patient has had his abdominal aortic aneurysm and whether or not he had known about this matter. REVIEW OF SYSTEMS: Unable to ascertain as the patient is unresponsive and intubated. PAST MEDICAL HISTORY: Past medical history entails hypertension, diabetes, cholesterol, coronary artery disease, cardiomyopathy, abdominal aortic aneurysm (juxtarenal), horseshoe kidney, chronic kidney disease stage 3, bilateral lower extremity atherosclerosis. PAST SURGICAL HISTORY: None has been reported so far. SOCIAL HISTORY: Questionable history of smoking. No further information provided. FAMILY HISTORY: Hypertension and coronary artery disease. PHYSICAL EXAMINATION: GENERAL: Normocephalic, atraumatic. Intubated and unresponsive. HEENT: Pupils are constricted with G-tube intact. Oral mucosa moist. Poor dentition. NECK: Supple. No carotid bruit. LUNGS: Coarse breath sounds bilaterally. No crackles. HEART: S1 and S2 present. No murmurs identified. ABDOMEN: Soft. Pulsatile mass on the left side of the abdomen. Truncal obesity. Bowel sounds positive. EXTREMITIES: Lower extremeties palpable femoral pulse. Nonpalpable pedal pulse. Motor and sensory unable to ascertain as the patient is unresponsive and intubated. Capillary refill 3 to 4 seconds. ASSESSMENT AND PLAN: Juxtarenal abdominal aortic aneurysm: The patient has findings of a complicated aneurysm that entails the juxtarenal region, and has a dumbbell shape size. There is also portion that is saccular in the proximal aspect of the area near the renals. At the moment the patient is medically unstable and will need to be stabilized. Further upon his noncontrast CT scan there is no indication that there is a hematoma development; however, this is difficult to ascertain and would require an official CT angiography. We will discuss the matter with our Multidisciplinary Team as the patient stabilizes and we can attempt for that. The patient will require a cardiac evaluation and clearance if an intervention is indicated. We will await the patient's recovery from his recent events. We will plan to obtain bilateral lower extremity arterial duplex as the patient did not have any palpable pedal pulses. Discussed findings, plan and managemeht with the primary service. There wa no family member available at the bedside. Contact was attempted however unreachable. Thank you for allowing us to partake in the care of your patient. Please call with any questions. Dictated By: Jared Spivey MD /[email or web address] /Document#: [id number]
[2016-10-20 05:27] LABS: BASOPHILS % 0.2 % (0.0-2.0); EOSINOPHILS % 0.3 % (0.0-7.0); HEMATOCRIT 39.2 % (42.0-52.0); HEMOGLOBIN 12.4 g/dl (14.0-18.0); LYMPHOCYTES # 0.8 10^3/ul (0.8-2.9); LYMPHOCYTES % 7.1 % (15.0-51.0); MEAN CORPUSCULAR HEMOGLOBIN 30.5 pg (29.0-33.0); MEAN CORPUSCULAR HGB CONC 31.6 g/dl (32.0-37.0); MEAN CORPUSCULAR VOLUME 96.6 fl (82.0-101.0); MEAN PLATELET VOLUME 11.3 fl (7.4-10.4); MONOCYTE # 0.8 10^3/ul (0.3-0.9); MONOCYTES % 7.7 % (0.0-11.0); NEUTROPHILS % 83.9 % (39.0-77.0); NUCLEATED RED BLOOD CELLS% 0.2 /100WBC (0.0-0.0); PLATELET COUNT 105 10^3/UL (140-415); POSITIVE DIFF @See below; RED BLOOD COUNT 4.06 10^6/ul (4.70-6.10); RED CELL DISTRIBUTION WIDTH 14.5 % (11.5-14.5); WHITE BLOOD COUNT 10.8 10^3/ul (4.8-10.8)
[2016-10-20 06:29] LABS: CALCIUM 7.8 mg/dl (8.4-10.2); CREATININE 3.39 mg/dl (0.61-1.24); POTASSIUM 5.8 mmol/L (3.5-5.1)
[2016-10-20] MEDS ORDERED: NA BICARBONATE 8.4% 50 ML SYG IV ONE (07:00)
[2016-10-20] MEDS ORDERED: SOD CHLORIDE 0.9% 500 ML IV ONE (07:00)
[2016-10-20 08:18] LABS: AADO2 Arterial 176.1 mmHg (7.0-24.0); Arterial Base Excess -4.4 mmol/L (-3.0-3); Arterial COHb 0.3 % (0.0-3.0); Arterial Fraction of Oxyhgb 94.2 % (93.0-99.0); Arterial HCO3 18.7 mmol/L (22.0-26.0); Arterial MetHb 0.4 % (0.0-1.5); Arterial Total Hemglobin 12.5 g/dl (12.0-18.0); MODE VENT - AC
[2016-10-20] MEDS: LEVETIRACETAM 500 MG (PMX) 100 ML IVPB SCH (09:16)
--- NOTE | 2016-10-20 09:25 | RADRPT ---
PROCEDURE: XR Chest. CLINICAL INDICATION: Shortness of breath. TECHNIQUE: Single frontal view. COMPARISON: 10/19/2016. FINDINGS: The endotracheal tube and nasogastric tube remain in satisfactory position. There is mild pulmonary edema and right upper lobe pneumonia, unchanged. The lungs are otherwise clear. The heart is enlarged. There is calcification in the aorta consistent with atherosclerosis. There is no pleural effusion. There is no pneumothorax. IMPRESSION: 1. Endotracheal tube and nasogastric tube in satisfactory position. 2. Mild pulmonary edema and right upper lobe pneumonia, unchanged. 3. Cardiomegaly and atherosclerosis. RPTAT: QQ .Ruben Hilario MD, MD Date Time Electronically viewed and signed by .Ruben Hilario MD, MD on 10/20/2016 09:25 .R/
--- NOTE | 2016-10-20 09:44 | PN ---
Date/Time of Note Date/Time of Note DATE: 10/20/16 TIME: 09:36 Assessment/Plan VTE Prophylaxis VTE Prophylaxis Intervention: SCD's Lines/Catheters IV C[facility]ter Type (from [facility]): Saline Lock Urinary Cath still in place: Yes Reason Cath still needed: urinary retention Assessment/Plan Chief Complaint/Hosp Course ASSESSMENT AND PLAN: This is an 81-year-old male status postcardiac arrest, found with abdominal aortic aneurysm, acute; left parietal and posterior temporal lobe infarcts; lactic acidosis,now intubated with respiratory distress. 1. Status post cardiac arrest-patient evaluated by cardiology team. Still intubated. -Continue care in intensive care unit. Trend troponins. -Follow up cardiology per their recommendations. -Continue medical treatment for now. They are going to defer cardiac catheterization and internal cardioverter defibrillator (ICD) evaluation until the patient recovers mentally, if that is possible. -Continue statin. - Consider restarting Plavix but will discuss with vascular surgery and cardiology teams given the patients abdominal aortic aneurysm. 2. Abdominal aortic aneurysm, again, 6 cm. -Follow vascular surgery recommendations. Patient most likely needs to be more medically stable before any considerations for any possible surgeries could be obtained or could be considered. 3. Acute ischemic infarct. MRI/MRA of the brain shows: Acute, left frontal parietal temporal and occipital lobe ischemic infarcts with involvement of the left insula, left thalamus and left para hippocampal gyrus. . Acute ischemic right frontal lobe superimposed on chronic right frontal lobe infarct. Acute ischemic right occipital lobe and bilateral cerebellar hemispheric infarct superimposed on chronic bilateral cerebellar infarcts. No evidence for acute hemorrhage hydrocephalus or herniation. -Continue neurologic checks and cautiously consider aspirin given the fact he has an abdominal aortic aneurysm. - Consider doing neurologic checks and continue statins as well high dose. Follow-up neurology consultation as well. - Follow-up PT and OT consult recommendations as well as Speech Therapy consult. 5. Renal insufficiency. Creatinine more elevated today. Patient has a very low urine output. -Follow-up renal consult recommendation as well. - Monitor urine output. Per discussion with renal team today, no plans for dialysis at this time. May need to treat his hyperkalemia as well 6. Gastrointestinal prophylaxis, H2 khushbu. 7. Deep venous thrombosis prophylaxis. - SCDs for now. 8. Dispo: Palliative Care team on the case given the patient's multiple comorbidities. May need to consider family meeting soon 9. Severe sepsis: Patient has positive bacteremia (staph aureus 2 out of 2 bottles) and positive lactic acidosis. -Continue broad-spectrum antibiotics for now, bicarb as needed, - follow-up infectious disease consult recommendation, Tylenol as needed pain and fevers EEG has been performed and results pending. Overall suspect poor prognosis. If can get a hold of family, need to discuss palliative care options. Critical care time spent on patient care today equals 50 minutes. Problems: Subjective 24 Hr Interval Summary Free Text/Dictation Patient still intubated. Seen by multiple specialist yesterday. Very low urine output. Showing mottled skin changes on his lower extremities now. Exam/Review of Systems Vital Signs Vitals Vital Signs Date Time Temp Pulse Resp B/P Pulse Ox O2 Delivery O2 Flow Rate FiO2 10/20/16 08:00 40 10/20/16 07:00 80 20 99/66 100 Mechanical Ventilator 10/20/16 04:00 99.0 10/19/16 08:00 10.0 Intake and Output 10/19/16 10/19/16 10/20/16 15:00 23:00 07:00 Intake Total 584.0 ml 1010.0 ml 590 ml Output Total 75 ml 735 ml 230 ml Balance 509.0 ml 275.0 ml 360 ml Exam GENERAL: The patient is lying in bed, intubated, nonresponsive, not alert and oriented. HEENT: Unable to fully assess because patient is intubated. NECK: Supple. No thyromegaly. LUNGS: Decreased breath sounds bilaterally. CARDIOVASCULAR: A 2/6 systolic murmur heard. S1 and S2 heard. ABDOMEN: Soft, nontender, nondistended. Normal bowel sounds. No rebound or guarding. MUSCULOSKELETAL: No lower extremity edema bilaterally, but decreased pulses and mottled skin bilateral lower extremities now NEUROLOGIC: Unable to fully assess because patient is intubated. Results Result Diagram: 10/20/16 0420 10/20/16 0420 Results 24 hrs Laboratory Tests Test 10/19/16 13:36 10/19/16 13:40 10/19/16 17:56 10/19/16 19:34 Bedside Glucose 196 166 Urine Random Sodium 140 H Lactic Acid Level 7.0 *H Test 10/19/16 21:18 10/20/16 00:45 10/20/16 01:13 10/20/16 04:20 Bedside Glucose 182 133 Lactic Acid Level 5.4 *H 6.8 *H White Blood Count 10.8 Red Blood Count 4.06 L Hemoglobin 12.4 L Hematocrit 39.2 L Mean Corpuscular Volume 96.6 Mean Corpuscular Hemoglobin 30.5 Mean Corpuscular Hemoglobin Concent 31.6 L Red Cell Distribution Width 14.5 Platelet Count 105 L Mean Platelet Volume 11.3 #H Neutrophils % 83.9 H Lymphocytes % 7.1 L Monocytes % 7.7 Eosinophils % 0.3 Basophils % 0.2 Nucleated Red Blood Cells % 0.2 H Neutrophils # 9.0 H Lymphocytes # 0.8 Monocytes # 0.8 Eosinophils # 0.0 Basophils # 0.0 Nucleated Red Blood Cells # 0.0 Sodium Level 145 H Potassium Level 5.8 H Chloride Level 107 Carbon Dioxide Level 15 L Anion Gap 29 #H Blood Urea Nitrogen 52 H Creatinine 3.39 H Glucose Level 131 # Calcium Level 7.8 L Test 10/20/16 04:53 10/20/16 07:00 10/20/16 09:15 Bedside Glucose 115 111 Blood Gas Specimen Source Blood arterial Arterial Blood Date Drawn 10/20/2016 8:00:55 AM Arterial Blood pH (Temp corrected) 7.431 Arterial Blood pCO2 (Temp correct) 28.7 L Arterial Blood pO2 (Temp corrected) 76.1 L Arterial Blood HCO3 18.7 L Arterial Blood Base Excess -4.4 L Arterial Blood Oxygen Saturation 94.9 L Perry Test N/A Arterial Blood Gas Puncture Site Right Brachial Arterial Blood Carboxyhemoglobin 0.3 Arterial Blood Methemoglobin 0.4 Blood Gas A-a O2 Differential 176.1 H Oxyhemoglobin Percent 94.2 Total Hemoglobin 12.5 Blood Gas Temperature 37.0 Blood Gas Respiration Rate 14.0 Blood Gas Actual Respiration Rate 24 Blood Gas Modality VENT - AC FiO2 40.0 Blood Gas Tidal Volume 500.0 Blood Gas Notified Whom Israel PTEE Blood Gas Notified Time 10/20/2016 8:18:38 AM Medications Medications Current Medications Ondansetron HCl (Zofran Inj) 4 mg Q6H PRN IV NAUSEA AND/OR VOMITING; Start at 12:00 Acetaminophen (Tylenol Tab) 650 mg Q6H PRN PO PAIN LEVEL 1-3 OR FEVER; Start at 12:00 Acetaminophen/ Hydrocodone Bitart ([place] (5/325)) 1 tab Q6H PRN PO MODERATE PAIN LEVEL 4-6; Start 10/18/16 at 12:00 Morphine Sulfate (morphine) 2 mg Q4H PRN IV SEVERE PAIN LEVEL 7-10; Start 10/18 at 12:00 Docusate Sodium (Colace) 100 mg Q12H PRN PO CONSTIPATION; Start 10/18/16 at 12: 00 Magnesium Hydroxide (Milk Of Mag) 30 ml DAILY PRN PO CONSTIPATION; Start at 12:00 Sodium Biphosphate/ Sodium Phosphate (Fleet Enema) 133 ml DAILY PRN [place] CONSTIPATION; Start 10/18/16 at 12:00 Lorazepam (Ativan) 0.5 mg Q6H PRN IV ANXIETY Last administered on 10/18/16 13: 36; Admin Dose 0.5 MG; Start 10/18/16 at 12:00 Hydralazine HCl (Apresoline) 10 mg Q6H PRN IV ELEVATED BLOOD PRESSURE; Start at 12:00 Nitroglycerin (Nitroglycerin (Sl Tab) 0.4 Mg) 1 tab Q5M PRN SL ANGINA; Start at 12:00 Atorvastatin Calcium 80 mg 80 mg QHS PO Last administered on 10/19/16 21:14; Admin Dose 80 MG; Start 10/18/16 at 21:00 Piperacillin Sod/ Tazobactam Sod 100 ml @ 200 mls/hr Q8H IVPB Last administered on 10/20/16 03:06; Admin Dose 200 MLS/HR; Start 10/18/16 at 19:00 Sodium Chloride (1/2 NS) 1,000 ml @ 30 mls/hr Q24H IV Last administered on 17:10; Admin Dose 60 MLS/HR; Start 10/18/16 at 20:00 Lorazepam (Ativan) 2 mg Q10MIN PRN IV SEIZURES Last administered on 10/20/16 00:46; Admin Dose 2 MG; Start 10/19/16 at 11:00 Insulin Aspart (Novolog Insulin Pen) NOVOLOG *MILD* ALGORI... Q4 SC Last administered on 10/19/16 21:21; Admin Dose 2 UNIT; Start 10/19/16 at 13:30 Miscellaneous Information 1 ea NOTE XX ; Start 10/19/16 at 13:00 Glucose (Glutose) 15 gm Q15M PRN PO DECREASED GLUCOSE; Start 10/19/16 at 13:00 Glucose (Glutose) 22.5 gm Q15M PRN PO DECREASED GLUCOSE; Start 10/19/16 at 13: 00 Dextrose (D50w Syringe) 25 ml Q15M PRN IV DECREASED GLUCOSE; Start 10/19/16 at 13:00 Dextrose (D50w Syringe) 50 ml Q15M PRN IV DECREASED GLUCOSE; Start 10/19/16 at 13:00 Glucagon (Glucagen) 1 mg Q15M PRN IM DECREASED GLUCOSE; Start 10/19/16 at 13:00 Glucose 15 gm 15 gm Q15M PRN BUCCAL DECREASED GLUCOSE; Start 10/19/16 at 13:00 Levetiracetam 100 ml @ 400 mls/hr Q12 IVPB Last administered on 10/20/16t 09: 16; Admin Dose 400 MLS/HR; Start 10/19/16 at 13:30 Vancomycin HCl/ Sodium Chloride (Vancocin/NS) 250 ml @ 83.333 mls/ hr Q96H IVPB ; Start 10/21/16 at 09:00 Pantoprazole (Protonix Iv) 40 mg BID@06,18 IV ; Start 10/20/16 at 18:00 JAZ BRISCOE Oct 20, 2016 09:44
--- NOTE | 2016-10-20 11:17 | CONS ---
Date/Time of Note Date/Time of Note DATE: 10/20/16 TIME: 11:15 Assessment/Plan Assessment/Plan Additional Assessment/Plan Chest x-ray was reviewed from today which is essentially clear. Mild cardiomegaly is present. Endotracheal tube is at an adequate level. Assessment recommendations; 1. Patient admitted with cardiac arrest status post along CPR with likely ensuing severe anoxic brain injury. 2. Gram-positive bacteremia from MRSA. 3. Peripheral vascular disease. 4. Improving pulmonary edema. 5. Thrombocytopenia. Continue current supportive care. Prognosis depends upon adequate mental status recovery. 35 minutes of critical care time was spent evaluating the patient. Consultation Date/Type/Reason Admit Date/Time Oct 19, 2016 at 09:59 Initial Consult Date 10/19/16 Type of Consultation: Pulmonary/critical care 24 HR Interval Summary Free Text/Dictation Patient condition remains critical. Remains profoundly unresponsive. Patient however has remained hemodynamically stable. General exam; elderly male, on ventilator via endotracheal tube. Unresponsive. Currently in no distress. Exam/Review of Systems Vital Signs Vitals Vital Signs Date Time Temp Pulse Resp B/P Pulse Ox O2 Delivery O2 Flow Rate FiO2 10/20/16 09:22 80 19 100 40 10/20/16 07:00 99/66 Mechanical Ventilator 10/20/16 04:00 99.0 10/19/16 08:00 10.0 Intake and Output 10/19/16 10/19/16 10/20/16 15:00 23:00 07:00 Intake Total 584.0 ml 1010.0 ml 590 ml Output Total 75 ml 735 ml 230 ml Balance 509.0 ml 275.0 ml 360 ml Exam HEENT exam; supple neck, no JVD. No lymphadenopathy. Midline trachea. No thyromegaly. Orally intubated. Patient is edentulous. Chest exam; diminished but clear breath sound. S1-S2 audible, no murmurs. Regular rhythm. Abdomen exam; soft, nondistended. Bowel sounds are sluggish. No organomegaly. Extremity exam; trace peripheral edema. There is mottling involving both feet. Peripheral pulses are not palpable. [employer] exam; patient remains unresponsive. Results Result Diagram: 10/20/16 0420 10/20/16 0420 Results 24 hrs Laboratory Tests Test 10/19/16 13:36 10/19/16 13:40 10/19/16 17:56 10/19/16 19:34 Bedside Glucose 196 166 Urine Random Sodium 140 H Lactic Acid Level 7.0 *H Test 10/19/16 21:18 10/20/16 00:45 10/20/16 01:13 10/20/16 04:20 Bedside Glucose 182 133 Lactic Acid Level 5.4 *H 6.8 *H White Blood Count 10.8 Red Blood Count 4.06 L Hemoglobin 12.4 L Hematocrit 39.2 L Mean Corpuscular Volume 96.6 Mean Corpuscular Hemoglobin 30.5 Mean Corpuscular Hemoglobin Concent 31.6 L Red Cell Distribution Width 14.5 Platelet Count 105 L Mean Platelet Volume 11.3 #H Neutrophils % 83.9 H Lymphocytes % 7.1 L Monocytes % 7.7 Eosinophils % 0.3 Basophils % 0.2 Nucleated Red Blood Cells % 0.2 H Neutrophils # 9.0 H Lymphocytes # 0.8 Monocytes # 0.8 Eosinophils # 0.0 Basophils # 0.0 Nucleated Red Blood Cells # 0.0 Sodium Level 145 H Potassium Level 5.8 H Chloride Level 107 Carbon Dioxide Level 15 L Anion Gap 29 #H Blood Urea Nitrogen 52 H Creatinine 3.39 H Glucose Level 131 # Calcium Level 7.8 L Test 10/20/16 04:53 10/20/16 07:00 10/20/16 09:15 Bedside Glucose 115 111 Blood Gas Specimen Source Blood arterial Arterial Blood Date Drawn 10/20/2016 8:00:55 AM Arterial Blood pH (Temp corrected) 7.431 Arterial Blood pCO2 (Temp correct) 28.7 L Arterial Blood pO2 (Temp corrected) 76.1 L Arterial Blood HCO3 18.7 L Arterial Blood Base Excess -4.4 L Arterial Blood Oxygen Saturation 94.9 L Perry Test N/A Arterial Blood Gas Puncture Site Right Brachial Arterial Blood Carboxyhemoglobin 0.3 Arterial Blood Methemoglobin 0.4 Blood Gas A-a O2 Differential 176.1 H Oxyhemoglobin Percent 94.2 Total Hemoglobin 12.5 Blood Gas Temperature 37.0 Blood Gas Respiration Rate 14.0 Blood Gas Actual Respiration Rate 24 Blood Gas Modality VENT - AC FiO2 40.0 Blood Gas Tidal Volume 500.0 Blood Gas Notified Whom Israel PETE Blood Gas Notified Time 10/20/2016 8:18:38 AM Medications Medications Current Medications Ondansetron HCl (Zofran Inj) 4 mg Q6H PRN IV NAUSEA AND/OR VOMITING; Start at 12:00 Acetaminophen (Tylenol Tab) 650 mg Q6H PRN PO PAIN LEVEL 1-3 OR FEVER; Start at 12:00 Acetaminophen/ Hydrocodone Bitart ([place] (5/325)) 1 tab Q6H PRN PO MODERATE PAIN LEVEL 4-6; Start 10/18/16 at 12:00 Morphine Sulfate (morphine) 2 mg Q4H PRN IV SEVERE PAIN LEVEL 7-10; Start 10/18 at 12:00 Docusate Sodium (Colace) 100 mg Q12H PRN PO CONSTIPATION; Start 10/18/16 at 12: 00 Magnesium Hydroxide (Milk Of Mag) 30 ml DAILY PRN PO CONSTIPATION; Start at 12:00 Sodium Biphosphate/ Sodium Phosphate (Fleet Enema) 133 ml DAILY PRN [place] CONSTIPATION; Start 10/18/16 at 12:00 Lorazepam (Ativan) 0.5 mg Q6H PRN IV ANXIETY Last administered on 10/18/16 13: 36; Admin Dose 0.5 MG; Start 10/18/16 at 12:00 Hydralazine HCl (Apresoline) 10 mg Q6H PRN IV ELEVATED BLOOD PRESSURE; Start at 12:00 Nitroglycerin (Nitroglycerin (Sl Tab) 0.4 Mg) 1 tab Q5M PRN SL ANGINA; Start at 12:00 Atorvastatin Calcium 80 mg 80 mg QHS PO Last administered on 10/19/16 21:14; Admin Dose 80 MG; Start 10/18/16 at 21:00 Piperacillin Sod/ Tazobactam Sod 100 ml @ 200 mls/hr Q8H IVPB Last administered on 10/20/16 03:06; Admin Dose 200 MLS/HR; Start 10/18/16 at 19:00 Sodium Chloride (1/2 NS) 1,000 ml @ 30 mls/hr Q24H IV Last administered on 17:10; Admin Dose 60 MLS/HR; Start 10/18/16 at 20:00 Lorazepam (Ativan) 2 mg Q10MIN PRN IV SEIZURES Last administered on 10/20/16 00:46; Admin Dose 2 MG; Start 10/19/16 at 11:00 Insulin Aspart (Novolog Insulin Pen) NOVOLOG *MILD* ALGORI... Q4 SC Last administered on 10/19/16 21:21; Admin Dose 2 UNIT; Start 10/19/16 at 13:30 Miscellaneous Information 1 ea NOTE XX ; Start 10/19/16 at 13:00 Glucose (Glutose) 15 gm Q15M PRN PO DECREASED GLUCOSE; Start 10/19/16 at 13:00 Glucose (Glutose) 22.5 gm Q15M PRN PO DECREASED GLUCOSE; Start 10/19/16 at 13: 00 Dextrose (D50w Syringe) 25 ml Q15M PRN IV DECREASED GLUCOSE; Start 10/19/16 at 13:00 Dextrose (D50w Syringe) 50 ml Q15M PRN IV DECREASED GLUCOSE; Start 10/19/16 at 13:00 Glucagon (Glucagen) 1 mg Q15M PRN IM DECREASED GLUCOSE; Start 10/19/16 at 13:00 Glucose 15 gm 15 gm Q15M PRN BUCCAL DECREASED GLUCOSE; Start 10/19/16 at 13:00 Levetiracetam 100 ml @ 400 mls/hr Q12 IVPB Last administered on 10/20/16 09: 16; Admin Dose 400 MLS/HR; Start 10/19/16 at 13:30 Vancomycin HCl/ Sodium Chloride (Vancocin/NS) 250 ml @ 83.333 mls/ hr Q96H IVPB ; Start 10/21/16 at 09:00 Pantoprazole (Protonix Iv) 40 mg BID@06,18 IV ; Start 10/20/16 at 18:00 BENITO BOOTH Oct 20, 2016 11:17
--- NOTE | 2016-10-20 13:18 | CONS ---
Date/Time of Note Date/Time of Note DATE: 10/20/16 TIME: 13:17 Assessment/Plan Assessment/Plan Chief Complaint/Hosp Course Patient is DNR status he is noncommunicative in no distress Temperature 99 pulse 80 respirations 19 blood pressure 99/66 saturation 100 on 40 FiO2 WBC 10.8 H&H 12.4 and 39.2 platelets 105 neutrophils 83.9 no bands BN 52 creatinine 3.39 lactic acid 6.7 Blood culture on admission grew staph species, repeat blood cultures pending urine culture was negative CT of the abdomen and pelvis on admission revealed abdominal aortic aneurysm without evidence of rupture 6 cm enlarged prostate small pleural effusion and pericardial effusion by basilar atelectasis CT of the brain revealed acute left frontal parietal temporal and occipital lobe ischemic infarct chronic pansinusitis Chest x-ray this morning revealed mild pulmonary edema in the right upper lobe pneumonia, unchanged Indwelling's endotracheal tube NG tube Tovar catheter Antibiotics: Vancomycin Zosyn Physical examination: This is a chronically ill-appearing elderly man who is lying comfortably in bed, the patient is noncommunicative. Head atraumatic normocephalic sclera nonicteric neck is supple trachea midline chest rise symmetrical breath sounds diminished bases heart S1-S2 abdomen soft bowel tones hypoactive extremities mottled cyanotic Assessment: 1. Acute encephalopathy status post cardiac arrest 2. Abdominal no aortic aneurysm 3. Acute CVA 4. Acute respiratory failure 5. Pneumonia 6. Staph bacteremia rule out contaminant Plan: Pending repeat blood cultures, continue present care, antibiotics, vent support per pulmonary follow recommendations of consultants. Prognosis poor DW staff Problems: Consultation Date/Type/Reason Admit Date/Time Oct 19, 2016 at 09:59 Initial Consult Date 10/19/16 Type of Consultation: id Exam/Review of Systems Vital Signs Vitals Vital Signs Date Time Temp Pulse Resp B/P Pulse Ox O2 Delivery O2 Flow Rate FiO2 10/20/16 12:00 90 10/20/16 09:22 19 100 40 10/20/16 07:00 99/66 Mechanical Ventilator 10/20/16 04:00 99.0 10/19/16 08:00 10.0 Intake and Output 10/19/16 10/19/16 10/20/16 15:00 23:00 07:00 Intake Total 584.0 ml 1010.0 ml 590 ml Output Total 75 ml 735 ml 230 ml Balance 509.0 ml 275.0 ml 360 ml Results Result Diagram: 10/20/16 0420 10/20/16 0420 Results 24 hrs Laboratory Tests Test 10/19/16 13:36 10/19/16 13:40 10/19/16 17:56 10/19/16 19:34 Bedside Glucose 196 166 Urine Osmolality 311 Urine Random Sodium 140 H Lactic Acid Level 7.0 *H Test 10/19/16 21:18 10/20/16 00:45 10/20/16 01:13 10/20/16 04:20 Bedside Glucose 182 133 Lactic Acid Level 5.4 *H 6.8 *H White Blood Count 10.8 Red Blood Count 4.06 L Hemoglobin 12.4 L Hematocrit 39.2 L Mean Corpuscular Volume 96.6 Mean Corpuscular Hemoglobin 30.5 Mean Corpuscular Hemoglobin Concent 31.6 L Red Cell Distribution Width 14.5 Platelet Count 105 L Mean Platelet Volume 11.3 #H Neutrophils % 83.9 H Lymphocytes % 7.1 L Monocytes % 7.7 Eosinophils % 0.3 Basophils % 0.2 Nucleated Red Blood Cells % 0.2 H Neutrophils # 9.0 H Lymphocytes # 0.8 Monocytes # 0.8 Eosinophils # 0.0 Basophils # 0.0 Nucleated Red Blood Cells # 0.0 Sodium Level 145 H Potassium Level 5.8 H Chloride Level 107 Carbon Dioxide Level 15 L Anion Gap 29 #H Blood Urea Nitrogen 52 H Creatinine 3.39 H Glucose Level 131 # Calcium Level 7.8 L Test 10/20/16 04:53 10/20/16 07:00 10/20/16 09:15 10/20/16 12:00 Bedside Glucose 115 111 Blood Gas Specimen Source Blood arterial Arterial Blood Date Drawn 10/20/2016 8:00:55 AM Arterial Blood pH (Temp corrected) 7.431 Arterial Blood pCO2 (Temp correct) 28.7 L Arterial Blood pO2 (Temp corrected) 76.1 L Arterial Blood HCO3 18.7 L Arterial Blood Base Excess -4.4 L Arterial Blood Oxygen Saturation 94.9 L Perry Test N/A Arterial Blood Gas Puncture Site Right Brachial Arterial Blood Carboxyhemoglobin 0.3 Arterial Blood Methemoglobin 0.4 Blood Gas A-a O2 Differential 176.1 H Oxyhemoglobin Percent 94.2 Total Hemoglobin 12.5 Blood Gas Temperature 37.0 Blood Gas Respiration Rate 14.0 Blood Gas Actual Respiration Rate 24 Blood Gas Modality VENT - AC FiO2 40.0 Blood Gas Tidal Volume 500.0 Blood Gas Notified Whom Israel PETE Blood Gas Notified Time 10/20/2016 8:18:38 AM Lactic Acid Level 6.7 *H Test 10/20/16 13:08 Bedside Glucose 128 Medications Medications Current Medications Ondansetron HCl (Zofran Inj) 4 mg Q6H PRN IV NAUSEA AND/OR VOMITING; Start at 12:00 Acetaminophen (Tylenol Tab) 650 mg Q6H PRN PO PAIN LEVEL 1-3 OR FEVER; Start at 12:00 Acetaminophen/ Hydrocodone Bitart ([place] (5/325)) 1 tab Q6H PRN PO MODERATE PAIN LEVEL 4-6; Start 10/18/16 at 12:00 Morphine Sulfate (morphine) 2 mg Q4H PRN IV SEVERE PAIN LEVEL 7-10; Start 10/18 at 12:00 Docusate Sodium (Colace) 100 mg Q12H PRN PO CONSTIPATION; Start 10/18/16 at 12: 00 Magnesium Hydroxide (Milk Of Mag) 30 ml DAILY PRN PO CONSTIPATION; Start at 12:00 Sodium Biphosphate/ Sodium Phosphate (Fleet Enema) 133 ml DAILY PRN OR CONSTIPATION; Start 10/18/16 at 12:00 Lorazepam (Ativan) 0.5 mg Q6H PRN IV ANXIETY Last administered on 10/18/16 13: 36; Admin Dose 0.5 MG; Start 10/18/16 at 12:00 Hydralazine HCl (Apresoline) 10 mg Q6H PRN IV ELEVATED BLOOD PRESSURE; Start at 12:00 Nitroglycerin (Nitroglycerin (Sl Tab) 0.4 Mg) 1 tab Q5M PRN SL ANGINA; Start at 12:00 Atorvastatin Calcium 80 mg 80 mg QHS PO Last administered on 10/19/16 21:14; Admin Dose 80 MG; Start 10/18/16 at 21:00 Piperacillin Sod/ Tazobactam Sod 100 ml @ 200 mls/hr Q8H IVPB Last administered on 10/20/16 11:44; Admin Dose 200 MLS/HR; Start 10/18/16 at 19:00 Sodium Chloride (1/2 NS) 1,000 ml @ 30 mls/hr Q24H IV Last administered on 17:10; Admin Dose 60 MLS/HR; Start 10/18/16 at 20:00 Lorazepam (Ativan) 2 mg Q10MIN PRN IV SEIZURES Last administered on 10/20/16 00:46; Admin Dose 2 MG; Start 10/19/16 at 11:00 Insulin Aspart (Novolog Insulin Pen) NOVOLOG *MILD* ALGORI... Q4 SC Last administered on 10/19/16 21:21; Admin Dose 2 UNIT; Start 10/19/16 at 13:30 Miscellaneous Information 1 ea NOTE XX ; Start 10/19/16 at 13:00 Glucose (Glutose) 15 gm Q15M PRN PO DECREASED GLUCOSE; Start 10/19/16 at 13:00 Glucose (Glutose) 22.5 gm Q15M PRN PO DECREASED GLUCOSE; Start 10/19/16 at 13: 00 Dextrose (D50w Syringe) 25 ml Q15M PRN IV DECREASED GLUCOSE; Start 10/19/16 at 13:00 Dextrose (D50w Syringe) 50 ml Q15M PRN IV DECREASED GLUCOSE; Start 10/19/16 at 13:00 Glucagon (Glucagen) 1 mg Q15M PRN IM DECREASED GLUCOSE; Start 10/19/16 at 13:00 Glucose 15 gm 15 gm Q15M PRN BUCCAL DECREASED GLUCOSE; Start 10/19/16 at 13:00 Levetiracetam 100 ml @ 400 mls/hr Q12 IVPB Last administered on 10/20/16 09: 16; Admin Dose 400 MLS/HR; Start 10/19/16 at 13:30 Vancomycin HCl/ Sodium Chloride (Vancocin/NS) 250 ml @ 83.333 mls/ hr Q96H IVPB ; Start 10/21/16 at 09:00 Pantoprazole (Protonix Iv) 40 mg BID@06,18 IV ; Start 10/20/16 at 18:00 MARTÍN PETERS NP Oct 20, 2016 13:18
--- NOTE | 2016-10-20 14:39 | PN ---
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 There is also portion that is saccular in the proximal aspect near the renals. At the moment the patient is medically unstable and will need to be stabilized. Further upon his noncontrast CT scan there is no indication that there is a hematoma development; however, difficult to ascertain the extent of the aneurysmal anatomy and would require an official CT angiography. We will discuss the matter with our Multidisciplinary Team if the patient stabilizes and neuro status improves. -Will require a cardiac evaluation and clearance if an intervention is indicated. We will await the patient's recovery from his recent events. -Will plan to obtain bilateral lower extremity arterial duplex as the patient did not have any palpable pedal pulses. -Discussed findings, plan and management with the primary service. -Thank you for allowing us to partake in the care of your patient. Please call with any questions. Problems: Subjective 24 Hr Interval Summary no new vascular changes overnight Subjective hx not possible: pt critical Exam/Review of Systems Vital Signs Vitals Vital Signs Date Time Temp Pulse Resp B/P Pulse Ox O2 Delivery O2 Flow Rate FiO2 10/20/16 13:02 80 20 100 40 10/20/16 07:00 99/66 Mechanical Ventilator 10/20/16 04:00 99.0 10/19/16 08:00 10.0 Intake and Output 10/19/16 10/19/16 10/20/16 15:00 23:00 07:00 Intake Total 584.0 ml 1010.0 ml 590 ml Output Total 75 ml 735 ml 230 ml Balance 509.0 ml 275.0 ml 360 ml Exam Free Text/Dictation GENERAL: Intubated and unresponsive. LUNGS: Coarse breath sounds bilaterally HEART: S1 and S2 present ABDOMEN: Soft. Pulsatile mass on the left side of the abdomen. Truncal obesity. Bowel sounds positive. EXTREMITIES: Lower extremities palpable femoral pulse. Nonpalpable pedal pulse. Motor and sensory unable to ascertain as the patient is unresponsive and intubated. Capillary refill 3 to 4 seconds. Results Result Diagram: 10/20/16 0420 10/20/16 0420 ASHLEY VOGT MD Oct 20, 2016 14:39
[2016-10-20 14:44] LABS: CALCIUM 7.6 mg/dl (8.4-10.2); CREATININE 3.68 mg/dl (0.61-1.24); POTASSIUM 5.8 mmol/L (3.5-5.1)
--- NOTE | 2016-10-20 15:58 | DES ---
Date/Time of Note Date/Time of Note DATE: 10/20/16 TIME: 15:52 Discharge/ Summary Admission/Discharge Info Admit Date/Time Oct 19, 2016 at 09:59 Discharge Date/Time Final Diagnosis 1. Status post cardiac arrest- 2. Abdominal aortic aneurysm, again, 6 cm. 3. Acute ischemic infarct. MRI/MRA of the brain shows: Acute, left frontal parietal temporal and occipital lobe ischemic infarcts with involvement of the left insula, left thalamus and left para hippocampal gyrus. . Acute ischemic right frontal lobe superimposed on chronic right frontal lobe infarct. Acute ischemic right occipital lobe and bilateral cerebellar hemispheric infarct superimposed on chronic bilateral cerebellar infarcts. No evidence for acute hemorrhage hydrocephalus or herniation. 5. Renal insufficiency. 6. Severe sepsis: Preliminary Cause of 1. Respiratory distress (minutes) 2. Asystole (minutes) 3. Cardiac arrest (days) 4. Large brain ischemic stroke (days) Hospital Course 81-year-old male with unknown past medical history, who was brought in by EMS because of a cardiac arrest. Most of the information is obtained from the ER documentation as the patient was intubated. Apparently the patient was on the toilet at home when he arrested, and apparently it was around 15-20 minutes before any CPR could be administered to the patient and that was performed by EMS when they arrived, so it is unclear how long the patient was down at home before CPR was initiated. The initial rhythm showed PEA. Patient was intubated by paramedics in the field, and they performed CPR and administered epinephrine x2 before the patient had return of spontaneous circulation; however, he has not been responsive since. Patient, according to medical records, apparently is on Coreg and possibly Plavix at home. When patient arrived to the ER, he was found to have elevated troponins, and his lactic acid was elevated to 8.5. CT scan of abdomen and pelvis also showed a 6 cm AAA but no signs of any rupture. Head CT also showed subtle blurring of the great white matter differentiation and mild sulcal effacement involving the left parietal and posterior temporal lobes suggesting an acute infarct. Cardiology team evaluated the patient as well. Patient was seen by multiple specialists during this hospital stay as well, including neurology team vascular surgery, pulmonary team, infectious disease team, and GI team. Patient was medically managed for these conditions, and his head imaging studies did show a large ischemic stroke involving frontal, temporal, parietal areas. Palliative care team was also consulted as well. Patient's condition did not improve, he still required mechanical ventilation. Decision was made by family member to go ahead make patient DNR which was done on October 20, 2016. Unfortunately the patient went into asystole and at 15: 52 on the same day. . Pending Labs/Cultures Laboratory Tests Test 10/19/16 17:56 10/19/16 19:34 10/19/16 21:18 10/20/16 00:45 Bedside Glucose 166mg/dL (70-220) 182mg/dL (70-220) 133mg/dL (70-220) Lactic Acid Level 7.0mmol/L (0.5-2.0) Test 10/20/16 01:13 10/20/16 04:20 10/20/16 04:53 10/20/16 07:00 Lactic Acid Level 5.4mmol/L (0.5-2.0) 6.8mmol/L (0.5-2.0) White Blood Count 10.810^3/ul (4.8-10.8) Red Blood Count 4.0610^6/ul (4.70-6.10) Hemoglobin 12.4g/dl (14.0-18.0) Hematocrit 39.2% (42.0-52.0) Mean Corpuscular Volume 96.6fl (82.0-101.0) Mean Corpuscular Hemoglobin 30.5pg (29.0-33.0) Mean Corpuscular Hemoglobin Concent 31.6g/dl (32.0-37.0) Red Cell Distribution Width 14.5% (11.5-14.5) Platelet Count 66326^3/UL (140-415) Mean Platelet Volume 11.3fl (7.4-10.4) Neutrophils % 83.9% (39.0-77.0) Lymphocytes % 7.1% (15.0-51.0) Monocytes % 7.7% (0.0-11.0) Eosinophils % 0.3% (0.0-7.0) Basophils % 0.2% (0.0-2.0) Nucleated Red Blood Cells % 0.2/100WBC (0.0-0.0) Neutrophils # 9.010^3/ul (1.6-7.5) Lymphocytes # 0.810^3/ul (0.8-2.9) Monocytes # 0.810^3/ul (0.3-0.9) Eosinophils # 0.010^3/ul (0.0-0.5) Basophils # 0.010^3/ul (0.0-0.1) Nucleated Red Blood Cells # 0.010^3/ul (0.0-0.0) Sodium Level 145mmol/L (135-144) Potassium Level 5.8mmol/L (3.5-5.1) Chloride Level 107mmol/L (97-110) Carbon Dioxide Level 15mmol/L (21-31) Anion Gap 29 (8-16) Blood Urea Nitrogen 52mg/dl (7-20) Creatinine 3.39mg/dl (0.61-1.24) Glucose Level 131mg/dl (70-220) Calcium Level 7.8mg/dl (8.4-10.2) Bedside Glucose 115mg/dL (70-220) Blood Gas Specimen Source Blood arterial Arterial Blood Date Drawn 10/20/2016 8:00:55 AM Arterial Blood pH (Temp corrected) 7.431 (7.350-7.450) Arterial Blood pCO2 (Temp correct) 28.7mmhg (35-45) Arterial Blood pO2 (Temp corrected) 76.1mmHG (80-90.0) Arterial Blood HCO3 18.7mmol/L (22.0-26.0) Arterial Blood Base Excess -4.4mmol/L (-3.0-3) Arterial Blood Oxygen Saturation 94.9mmHG (95.0-100.0) Perry Test N/A Arterial Blood Gas Puncture Site Right Brachial Arterial Blood Carboxyhemoglobin 0.3% (0.0-3.0) Arterial Blood Methemoglobin 0.4% (0.0-1.5) Blood Gas A-a O2 Differential 176.1mmHg (7.0-24.0) Oxyhemoglobin Percent 94.2% (93.0-99.0) Total Hemoglobin 12.5g/dl (12.0-18.0) Blood Gas Temperature 37.0C Blood Gas Respiration Rate 14.0 Blood Gas Actual Respiration Rate 24 Blood Gas Modality VENT - AC FiO2 40.0% Blood Gas Tidal Volume 500.0mL Blood Gas Notified Whom Israel PETE Blood Gas Notified Time 10/20/2016 8:18:38 AM Test 10/20/16 09:15 10/20/16 12:00 10/20/16 13:08 10/20/16 13:15 Bedside Glucose 111mg/dL (70-220) 128mg/dL (70-220) Lactic Acid Level 6.7mmol/L (0.5-2.0) Urine Osmolality 309mOsm/kg (250-1200) Urine Random Sodium 115mmol/L (30-90) Test 10/20/16 14:00 Sodium Level 145mmol/L (135-144) Potassium Level 5.8mmol/L (3.5-5.1) Chloride Level 107mmol/L (97-110) Carbon Dioxide Level 17mmol/L (21-31) Anion Gap 27 (8-16) Blood Urea Nitrogen 56mg/dl (7-20) Creatinine 3.68mg/dl (0.61-1.24) Glucose Level 139mg/dl (70-220) Calcium Level 7.6mg/dl (8.4-10.2) JAZ BRISCOE Oct 20, 2016 15:58
--- NOTE | 2016-10-20 17:40 | CONS ---
Date/Time of Note Date/Time of Note DATE: 10/20/16 TIME: 17:38 Consult Date/Type/Reason Admit Date/Time Oct 19, 2016 at 09:59 Initial Consult Date 10/19/16 Type of Consultation: Neurology Reason for Consultation hypoxic injury post arrest seizures Ordering Provider: JAZ BRISCOE Subjective no improvement in exam no further seizures EEG shows burst suppression pattern with severe encephalopathy Objective Vital Signs Date Time Temp Pulse Resp B/P Pulse Ox O2 Delivery O2 Flow Rate FiO2 10/20/16 15:00 95 24 90/60 100 Mechanical Ventilator 10/20/16 13:02 40 10/20/16 12:00 100.1 10/19/16 08:00 10.0 Intake and Output 10/19/16 10/19/16 10/20/16 15:00 23:00 07:00 Intake Total 584.0 ml 1010.0 ml 590 ml Output Total 75 ml 735 ml 230 ml Balance 509.0 ml 275.0 ml 360 ml Exam intubated off sedation no response to verbal stimuli unable to arouse to sternal rub CN: pupils 1 mm NR absent corneal very weak gag Motor no movement to noxious stimuli Results/Medications Result Diagram: 10/20/16 0420 10/20/16 1400 Results 24 hrs Laboratory Tests Test 10/19/16 17:56 10/19/16 19:34 10/19/16 21:18 10/20/16 00:45 Bedside Glucose 166 182 133 Lactic Acid Level 7.0 *H Test 10/20/16 01:13 10/20/16 04:20 10/20/16 04:53 10/20/16 07:00 Lactic Acid Level 5.4 *H 6.8 *H White Blood Count 10.8 Red Blood Count 4.06 L Hemoglobin 12.4 L Hematocrit 39.2 L Mean Corpuscular Volume 96.6 Mean Corpuscular Hemoglobin 30.5 Mean Corpuscular Hemoglobin Concent 31.6 L Red Cell Distribution Width 14.5 Platelet Count 105 L Mean Platelet Volume 11.3 #H Neutrophils % 83.9 H Lymphocytes % 7.1 L Monocytes % 7.7 Eosinophils % 0.3 Basophils % 0.2 Nucleated Red Blood Cells % 0.2 H Neutrophils # 9.0 H Lymphocytes # 0.8 Monocytes # 0.8 Eosinophils # 0.0 Basophils # 0.0 Nucleated Red Blood Cells # 0.0 Sodium Level 145 H Potassium Level 5.8 H Chloride Level 107 Carbon Dioxide Level 15 L Anion Gap 29 #H Blood Urea Nitrogen 52 H Creatinine 3.39 H Glucose Level 131 # Calcium Level 7.8 L Bedside Glucose 115 Blood Gas Specimen Source Blood arterial Arterial Blood Date Drawn 10/20/2016 8:00:55 AM Arterial Blood pH (Temp corrected) 7.431 Arterial Blood pCO2 (Temp correct) 28.7 L Arterial Blood pO2 (Temp corrected) 76.1 L Arterial Blood HCO3 18.7 L Arterial Blood Base Excess -4.4 L Arterial Blood Oxygen Saturation 94.9 L Perry Test N/A Arterial Blood Gas Puncture Site Right Brachial Arterial Blood Carboxyhemoglobin 0.3 Arterial Blood Methemoglobin 0.4 Blood Gas A-a O2 Differential 176.1 H Oxyhemoglobin Percent 94.2 Total Hemoglobin 12.5 Blood Gas Temperature 37.0 Blood Gas Respiration Rate 14.0 Blood Gas Actual Respiration Rate 24 Blood Gas Modality VENT - AC FiO2 40.0 Blood Gas Tidal Volume 500.0 Blood Gas Notified Whom Israel PETE Blood Gas Notified Time 10/20/2016 8:18:38 AM Test 10/20/16 09:15 10/20/16 12:00 10/20/16 13:08 10/20/16 13:15 Bedside Glucose 111 128 Lactic Acid Level 6.7 *H Urine Osmolality 309 Urine Random Sodium 115 H Test 10/20/16 14:00 Sodium Level 145 H Potassium Level 5.8 H Chloride Level 107 Carbon Dioxide Level 17 L Anion Gap 27 H Blood Urea Nitrogen 56 H Creatinine 3.68 H Glucose Level 139 Calcium Level 7.6 L Medications Current Medications Ondansetron HCl (Zofran Inj) 4 mg Q6H PRN IV NAUSEA AND/OR VOMITING; Start at 12:00 Acetaminophen (Tylenol Tab) 650 mg Q6H PRN PO PAIN LEVEL 1-3 OR FEVER; Start at 12:00 Acetaminophen/ Hydrocodone Bitart ([place] (5/325)) 1 tab Q6H PRN PO MODERATE PAIN LEVEL 4-6; Start 10/18/16 at 12:00 Morphine Sulfate (morphine) 2 mg Q4H PRN IV SEVERE PAIN LEVEL 7-10; Start 10/18 at 12:00 Docusate Sodium (Colace) 100 mg Q12H PRN PO CONSTIPATION; Start 10/18/16 at 12: 00 Magnesium Hydroxide (Milk Of Mag) 30 ml DAILY PRN PO CONSTIPATION; Start at 12:00 Sodium Biphosphate/ Sodium Phosphate (Fleet Enema) 133 ml DAILY PRN DE CONSTIPATION; Start 10/18/16 at 12:00 Lorazepam (Ativan) 0.5 mg Q6H PRN IV ANXIETY Last administered on 10/18/16 13: 36; Admin Dose 0.5 MG; Start 10/18/16 at 12:00 Hydralazine HCl (Apresoline) 10 mg Q6H PRN IV ELEVATED BLOOD PRESSURE; Start at 12:00 Nitroglycerin (Nitroglycerin (Sl Tab) 0.4 Mg) 1 tab Q5M PRN SL ANGINA; Start at 12:00 Atorvastatin Calcium 80 mg 80 mg QHS PO Last administered on 10/19/16 21:14; Admin Dose 80 MG; Start 10/18/16 at 21:00 Piperacillin Sod/ Tazobactam Sod 100 ml @ 200 mls/hr Q8H IVPB Last administered on 10/20/16 11:44; Admin Dose 200 MLS/HR; Start 10/18/16 at 19:00 Sodium Chloride (1/2 NS) 1,000 ml @ 30 mls/hr Q24H IV Last administered on 17:10; Admin Dose 60 MLS/HR; Start 10/18/16 at 20:00 Lorazepam (Ativan) 2 mg Q10MIN PRN IV SEIZURES Last administered on 10/20/16 00:46; Admin Dose 2 MG; Start 10/19/16 at 11:00 Insulin Aspart (Novolog Insulin Pen) NOVOLOG *MILD* ALGORI... Q4 SC Last administered on 10/19/16 21:21; Admin Dose 2 UNIT; Start 10/19/16 at 13:30 Miscellaneous Information 1 ea NOTE XX ; Start 10/19/16 at 13:00 Glucose (Glutose) 15 gm Q15M PRN PO DECREASED GLUCOSE; Start 10/19/16 at 13:00 Glucose (Glutose) 22.5 gm Q15M PRN PO DECREASED GLUCOSE; Start 10/19/16 at 13: 00 Dextrose (D50w Syringe) 25 ml Q15M PRN IV DECREASED GLUCOSE; Start 10/19/16 at 13:00 Dextrose (D50w Syringe) 50 ml Q15M PRN IV DECREASED GLUCOSE; Start 10/19/16 at 13:00 Glucagon (Glucagen) 1 mg Q15M PRN IM DECREASED GLUCOSE; Start 10/19/16 at 13:00 Glucose 15 gm 15 gm Q15M PRN BUCCAL DECREASED GLUCOSE; Start 10/19/16 at 13:00 Levetiracetam 100 ml @ 400 mls/hr Q12 IVPB Last administered on 10/20/16t 09: 16; Admin Dose 400 MLS/HR; Start 10/19/16 at 13:30 Vancomycin HCl/ Sodium Chloride (Vancocin/NS) 250 ml @ 83.333 mls/ hr Q96H IVPB ; Start 10/21/16 at 09:00 Pantoprazole (Protonix Iv) 40 mg BID@06,18 IV ; Start 10/20/16 at 18:00 Miscellaneous Information (*Rx Drug Level Order Reminder*) RANDOM VANCOMYCIN LEVEL 7... ONCE ONCE XX ; Start 10/21/16 at 05:00; Stop 10/21/16 at 05:01 Assessment/Plan Chief Complaint/Hosp Course 81 year old male with AAA admitted with PEA arrest with severe cardiomyopathy and extensive bilateral cardioembolic strokes and hypoxic injury and post anoxic seizures. Recommendations: -continue Keppra 500 mg q12h ppx -EEG with burst suppression which is generally a poor prognosis post cardiac arrest, severe encephalopathy -unfortunately he is at too high risk for hemorrhagic conversion of infarctions to start AC may use antiplatelet if cleared -continue statin, maintain normotensive blood pressure -overall based on the extent on injury seen on the MRI and his comorbid medical issues i expect a very poor prognosis for a meaningful neurologic recovery patient made DNR Problems: RONNIE ZELAYA MD Oct 20, 2016 17:40
[2016-10-20] MEDS ORDERED: PANTOPRAZOLE 40 MG INJ IV SCH (18:00)
--- NOTE | 2016-10-20 20:09 | CONS ---
Date/Time of Note Date/Time of Note DATE: 10/20/16 TIME: 20:06 Assessment/Plan Assessment/Plan Additional Assessment/Plan Case was discussed with Dr Briscoe. Pt is in irreversible coma & GABRIELA. Prognosis is dismal. Await palliative care MD's plan Consultation Date/Type/Reason Admit Date/Time Oct 19, 2016 at 09:59 Initial Consult Date 10/19/16 Type of Consultation: renal Reason for Consultation Pt was seen at 900 AM this morning Referring Provider: JAZ BRISCOE 24 HR Interval Summary Free Text/Dictation Pt is vent dependent & Comatosed Exam/Review of Systems Vital Signs Vitals Vital Signs Date Time Temp Pulse Resp B/P Pulse Ox O2 Delivery O2 Flow Rate FiO2 10/20/16 15:00 95 24 90/60 100 Mechanical Ventilator 10/20/16 13:02 40 10/20/16 12:00 100.1 10/19/16 08:00 10.0 Intake and Output 10/19/16 10/19/16 10/20/16 15:00 23:00 07:00 Intake Total 584.0 ml 1010.0 ml 590 ml Output Total 75 ml 735 ml 230 ml Balance 509.0 ml 275.0 ml 360 ml Exam Constitutional: non-verbal, obese Head: normocephalic Eyes: EOMI ENMT: other (NG in place) Respiratory: clear to auscultation Cardiovascular: regular rate and rhythm Gastrointestinal: distended Neurological: unresponsive (coma) Results Further increase in BUN/Creat noted Result Diagram: 10/20/16 0420 10/20/16 1400 Results 24 hrs Laboratory Tests Test 10/19/16 21:18 10/20/16 00:45 10/20/16 01:13 10/20/16 04:20 Bedside Glucose 182 133 Lactic Acid Level 5.4 *H 6.8 *H White Blood Count 10.8 Red Blood Count 4.06 L Hemoglobin 12.4 L Hematocrit 39.2 L Mean Corpuscular Volume 96.6 Mean Corpuscular Hemoglobin 30.5 Mean Corpuscular Hemoglobin Concent 31.6 L Red Cell Distribution Width 14.5 Platelet Count 105 L Mean Platelet Volume 11.3 #H Neutrophils % 83.9 H Lymphocytes % 7.1 L Monocytes % 7.7 Eosinophils % 0.3 Basophils % 0.2 Nucleated Red Blood Cells % 0.2 H Neutrophils # 9.0 H Lymphocytes # 0.8 Monocytes # 0.8 Eosinophils # 0.0 Basophils # 0.0 Nucleated Red Blood Cells # 0.0 Sodium Level 145 H Potassium Level 5.8 H Chloride Level 107 Carbon Dioxide Level 15 L Anion Gap 29 #H Blood Urea Nitrogen 52 H Creatinine 3.39 H Glucose Level 131 # Calcium Level 7.8 L Test 10/20/16 04:53 10/20/16 07:00 10/20/16 09:15 10/20/16 12:00 Bedside Glucose 115 111 Blood Gas Specimen Source Blood arterial Arterial Blood Date Drawn 10/20/2016 8:00:55 AM Arterial Blood pH (Temp corrected) 7.431 Arterial Blood pCO2 (Temp correct) 28.7 L Arterial Blood pO2 (Temp corrected) 76.1 L Arterial Blood HCO3 18.7 L Arterial Blood Base Excess -4.4 L Arterial Blood Oxygen Saturation 94.9 L Perry Test N/A Arterial Blood Gas Puncture Site Right Brachial Arterial Blood Carboxyhemoglobin 0.3 Arterial Blood Methemoglobin 0.4 Blood Gas A-a O2 Differential 176.1 H Oxyhemoglobin Percent 94.2 Total Hemoglobin 12.5 Blood Gas Temperature 37.0 Blood Gas Respiration Rate 14.0 Blood Gas Actual Respiration Rate 24 Blood Gas Modality VENT - AC FiO2 40.0 Blood Gas Tidal Volume 500.0 Blood Gas Notified Whom Israel PETE Blood Gas Notified Time 10/20/2016 8:18:38 AM Lactic Acid Level 6.7 *H Test 10/20/16 13:08 10/20/16 13:15 10/20/16 14:00 Bedside Glucose 128 Urine Osmolality 309 Urine Random Sodium 115 H Sodium Level 145 H Potassium Level 5.8 H Chloride Level 107 Carbon Dioxide Level 17 L Anion Gap 27 H Blood Urea Nitrogen 56 H Creatinine 3.68 H Glucose Level 139 Calcium Level 7.6 L HIEN LOO MD Oct 20, 2016 20:09
[2016-10-21] MEDS ORDERED: VANCOMYCIN 1.25 GM in SOD CHLORIDE 0.9% 250 ML IVPB SCH ×4 (09:00)
== END 2016-10-20 15:52 | disposition expired | DRG 871 ==
LOC: E/R 08:34 → ICU 10-19 09:59
PROVIDERS: ADMIT Internal Medicine; ATTEND Internal Medicine
PROC: 5A1935Z Respiratory Ventilation, Less than 24 Consecutive Hours (ICD-10-PCS; principal; 2016-10-19)
PROC: 0BH17EZ Insertion of Endotracheal Airway into Trachea, Via Natural or Artificial Opening (ICD-10-PCS; 2016-10-19)
DX: A41.02 Sepsis due to Methicillin resistant Staphylococcus aureus (principal); J96.00 Acute respiratory failure, unspecified whether with hypoxia or hypercapnia; I46.9 Cardiac arrest, cause unspecified; J69.0 Pneumonitis due to inhalation of food and vomit; I50.23 Acute on chronic systolic (congestive) heart failure; I63.413 Cerebral infarction due to embolism of bilateral middle cerebral arteries; N17.9 Acute kidney failure, unspecified; G93.1 Anoxic brain damage, not elsewhere classified; D69.6 Thrombocytopenia, unspecified; I42.9 Cardiomyopathy, unspecified; I13.0 Hypertensive heart and chronic kidney disease with heart failure and stage 1 through stage 4 chronic kidney disease, or unspecified chronic kidney disease; K62.5 Hemorrhage of anus and rectum; Z86.73 Personal history of transient ischemic attack (TIA), and cerebral infarction without residual deficits; Z79.02 Long term (current) use of antithrombotics/antiplatelets; E87.5 Hyperkalemia; R65.20 Severe sepsis without septic shock; I71.4 Abdominal aortic aneurysm, without rupture; R40.2432 Glasgow coma scale score 3-8, at arrival to emergency department; Q63.1 Lobulated, fused and horseshoe kidney; E78.5 Hyperlipidemia, unspecified; R31.9 Hematuria, unspecified; N18.3 Chronic kidney disease, stage 3 (moderate); R56.9 Unspecified convulsions
CPT/HCPCS: 36415; 36600; 70450; 70549; 70551; 71010; 74000; 74176; 76775; 80048; 80053; 80061; 81001; 82803; 82962; 83036; 83605; 83735; 83935; 84100; 84300; 84439; 84443; 84484; 85025; 85610; 85730; 87040; 87081; 87086; 93005; 93306; 94002; 94003; 94770; 95819; 96365; 96366; 96375; 96376; J1815; J1940; J1953; J2060; J2543; J3010; J3370; J7030; J7040; J7050